=== PATIENT | female | born 1985 | race Two or more races ===

== ENCOUNTER 2025-01-21 16:15 | Observation (INO) | payer MEDICAID ==
--- NOTE | 2025-01-21 23:59 | DVHDS2 ---
Physician Discharge Progress N Final Diagnosis: ama,36wks Operations or Procedures: Operations or Procedures nst reviwed reactive,sono Condition on Discharge: Good Disposition: Home Discharge Instructions: Diet: Regular Activity: No Restrictions, As Tolerated Medications: na Follow Up Care: Specialist: 1w Discharge Statement: "Patient was advised to return to the ER or call 911 if any headaches, dizziness, shortness of breath, chest pain, abdominal pain, bleeding, fevers, or worsening of medical condition. Patient was counseled about treatment plan, medications, possible side effects, patientverbalized understanding. All questions were answered to the best of my ability. This discharge took greater then 30 minutes in planning, reviewing documentat ion, counseling the patient, and discussing with other team members." Visit Coding OBGYN Date of Service: Jan 21, 2025 Billing Provider: LIONEL RODGERS DO ADJUNCT PSYCHOLOGY PROFESSOR Common Visit Codes: [id number] OBS CARE (HIGH) ADJUNCT PSYCHOLOGY PROFESSOR Procedure Codes: 88651-13- NON-STRESS TEST LIONEL RODGERS DO Jan 21, 2025 23:59
== END 2025-01-21 17:30 | disposition home or self-care (01) ==
LOC: UNDOADMOB 16:15 → EDBD 16:15 → LDRP 16:15 → UNDODISOB 17:30
PROVIDERS: ADMIT Obstetrics & Gynecology; ATTEND Obstetrics & Gynecology
DX: O09.523 Supervision of elderly multigravida, third trimester (principal); Z3A.36 36 weeks gestation of pregnancy; Z79.899 Other long term (current) drug therapy; Z98.890 Other specified postprocedural states
CPT/HCPCS: 59025; 81002; 94760; G0378

== ENCOUNTER 2025-01-30 16:10 | Observation (INO) | payer MEDICAID ==
[~2025-01-30] VITALS: Ht 160 cm; Wt 89.4 kg
[2025-01-30] MEDS ORDERED: PREN-96 PO (17:06)
--- NOTE | 2025-01-30 17:12 | DVH ---
BIOPHYSICAL PROFILE HISTORY: AMA TECHNIQUE: Multiple transabdominal real-time grayscale sonographic images through the gravid uterus of the fetus with duplex Doppler color flow and M-mode spectral analysis FINDINGS: BIOPHYSICAL PROFILE: breathing score: 2/2 movement score: 2/2 tone score: 2/2 Quantitative MAXX score: 2/2 (MAXX: 9 Cm.) Total score: 8/8 The cervix closed Single live fetus in cephalic presentation. heart rate 129 beats per minute. Anterior placenta without previa or abruption IMPRESSION: 1. Biophysical profile score: 8/8
--- NOTE | 2025-01-30 18:08 | DVHDS2 ---
Physician Discharge Progress N Final Diagnosis: testing for AMA Operations or Procedures: Operations or Procedures 39yo IUP@37.5wks VSS NST reactive FKC/Labor precautions reviewed Other Interventions Other Interventions [address] [address] Ph: [phone] DIAGNOSTIC IMAGING Diagnostic Imaging Report : [id number] Signed PATIENT: RIDDHI WHITEACCT: [id number] UNIT: [id number] : 1985 LOC: [facility] RO[facility] / BED: TRIAGE1 / A AGE / SEX: 39 / F ADM STATUS: ADM IN SERVICE 1623 ORDERING PHYSICIAN: RADHA HARTLEY CNM PROCEDURE(s): BPP - BIOPHYSICAL PROFILE REASON: AMA ORDER NUMBER(s): [id number], ACCESSION NUMBER(s): [id number] BIOPHYSICAL PROFILE HISTORY: AMA TECHNIQUE: Multiple transabdominal real-time grayscale sonographic images through the gravid uterus of the fetus with duplex Doppler color flow and M-mode spectral analysis FINDINGS: BIOPHYSICAL PROFILE: breathing score: 2/2 movement score: 2/2 tone score: 2/2 Quantitative MAXX score: 2/2 (MAXX: 9 Cm.) Total score: 8/8 The cervix closed Single live fetus in cephalic presentation. heart rate 129 beats per minute. Anterior placenta without previa or abruption IMPRESSION: 1. Biophysical profile score: 8/8 ATED BY: TIFFANY MARTI MD DICTATED DATE/TIME: 01/30/251709 SIGNED BY: TIFFANY MARTI MD SIGNED DATE/TIME: 01/30/251709 CC: Condition on Discharge: Stable Disposition: Home Discharge Instructions: Diet: Regular Activity: No Restrictions, As Tolerated Medications: see med list Follow Up Care: Specialist: f/u in 1 wk Discharge Statement: "Patient was advised to return to the ER or call 911 if any headaches, dizziness, shortness of breath, chest pain, abdominal pain, bleeding, fevers, or worsening of medical condition. Patient was counseled about treatment plan, medications, possible side effects, patientverbalized understanding. All questions were answered to the best of my ability. This discharge took greater then 30 minutes in planning, reviewing documentation, counseling the patient, and discussing with other team members." Visit Coding OBGYN Date of Service: Jan 30, 2025 Billing Provider: RADHA HARTLEY CNM ELECTROCARDIOGRAM TECHNICIAN Common Visit Codes: [id number] OBS CARE (HIGH) ELECTROCARDIOGRAM TECHNICIAN Procedure Codes: 62468-83- NON-STRESS TEST RADHA HARTLEY CNM Jan 30, 2025 18:08
== END 2025-01-30 17:57 | disposition home or self-care (01) ==
LOC: LDRP 16:10 → UNDOADMOB 16:10 → LDRP 16:24 → UNDODISOB 17:57
PROVIDERS: ADMIT Obstetrics & Gynecology; ATTEND Obstetrics & Gynecology
DX: O09.523 Supervision of elderly multigravida, third trimester (principal); Z3A.37 37 weeks gestation of pregnancy; Z79.899 Other long term (current) drug therapy
CPT/HCPCS: 59025; 76819; 81002; 94760; G0378

== ENCOUNTER 2025-02-06 15:14 | Observation (INO) | payer MEDICAID ==
[~2025-02-06 15:14] MED LIST: PREN-96 PO
--- NOTE | 2025-02-06 16:07 | DVH ---
BIOPHYSICAL PROFILE HISTORY: ama Comparison Study: US BIOPHYSICAL PROFILE on DOS: 01/30/25 TECHNIQUE: Multiple real-time grayscale sonographic images through the gravid uterus of the fetus wi th duplex Doppler color flow and M-mode spectral analysis FINDINGS: BIOPHYSICAL PROFILE: breathing score: 2 movement score: tone score: Quantitative MAXX score: 2 (MAXX: 8.5 Cm.) Total score: 8 Single live fetus in cephalic presentation. heart rate 150 beats per minute. Anterior placenta without previa or abruption Biophysical profile score 8/8 corresponding to an ABIGAIL of 02/15/25 IMPRESSION: 1. Biophysical profile score: 8/8
--- NOTE | 2025-02-06 19:31 | DVHDS2 ---
Physician Discharge Progress N Final Diagnosis: testing for AMA Operations or Procedures: Operations or Procedures 39yo IUP@38.5wks VSS NST reactive FKC/labor precautions reviewed Other Interventions Other Interventions [address] [address] Ph: [phone] DIAGNOSTIC IMAGING Diagnostic Imaging Report : [id number] Signed PATIENT: RIDDHI WHITEACCT: [id number] UNIT: [id number] : 1985 LOC: [facility] RO[facility] / BED: TRIAGE2 / A AGE / SEX: 39 / F ADM STATUS: ADM IN SERVICE 1520 ORDERING PHYSICIAN: RADHA HARTLEY CNM PROCEDURE(s): BPP - BIOPHYSICAL PROFILE REASON: ama ORDER NUMBER(s): [id number], ACCESSION NUMBER(s): [id number] BIOPHYSICAL PROFILE HISTORY: ama Comparison Study: US BIOPHYSICAL PROFILE on DOS: 01/30/25 TECHNIQUE: Multiple real-time grayscale sonographic images through the gravid uterus of the fetus with duplex Doppler color flow and M-mode spectral analysis FINDINGS: BIOPHYSICAL PROFILE: breathing score: 2 movement score: tone score: Quantitative MAXX score: 2 (MAXX: 8.5 Cm.) Total score: 8 Single live fetus in cephalic presentation. heart rate 150 beats per minute. Anterior placenta without previa or abruption Biophysical profile score 8/8 corresponding to an ABIGAIL of 02/15/25 IMPRESSION: 1. Biophysical profile score: 8/8 ATED BY: TIFFANY YUEN MD DICTATED DATE/TIME: 02/06/25 1604 SIGNED BY: TIFFANY YUEN MD SIGNED DATE/TIME: 02/06/25 1604 CC: Condition on Discharge: Stable Disposition: Home Discharge Instructions: Diet: Regular Activity: No Restrictions, As Tolerated Medications: see med list Follow Up Care: Specialist: f/u in 1 wk Discharge Statement: "Patient was advised to return to the ER or call 911 if any headaches, dizziness, shortness of breath, chest pain, abdominal pain, bleeding, fevers, or worsening of medical condition. Patient was counseled about treatment plan, medications, possible side effects, patientverbalized understanding. All questions were answered to the best of my ability. This discharge took greater then 30 minutes in planning, reviewing documentation, counseling the patient, and discussing with other team members." Visit Coding OBGYN Date of Service: Feb 06, 2025 Billing Provider: RADHA HARTLEY CNM BARBER OR BEAUTY SHOP MANAGER Common Visit Codes: [id number] OBS CARE (HIGH) BARBER OR BEAUTY SHOP MANAGER Procedure Codes: 88541-49- NON-STRESS TEST RADHA HARTLEY CNM Feb 06, 2025 19:31
== END 2025-02-06 16:38 | disposition home or self-care (01) ==
LOC: LDRP 15:14 → UNDOADMOB 15:14 → LDRP 15:21 → UNDODISOB 16:38
PROVIDERS: ADMIT Obstetrics & Gynecology; ATTEND Obstetrics & Gynecology
DX: O09.523 Supervision of elderly multigravida, third trimester (principal); Z3A.38 38 weeks gestation of pregnancy; Z79.899 Other long term (current) drug therapy
CPT/HCPCS: 59025; 76819; 81002; 94760; G0378

== ENCOUNTER 2025-02-11 16:18 | Inpatient (IN) | payer MEDICAID ==
[~2025-02-11] VITALS: Ht 160 cm; Wt 86.6 kg
[2025-02-11] MEDS ORDERED: BUTORPHANOL TARTRATE 2 MG/1 ML VIAL IV PRN ×2 (16:45)
[2025-02-11] MEDS ORDERED: LIDOCAINE 2%HCL (LOCAL ANESTH.) INJ 20ML MDV IJ PRN (16:45)
[2025-02-11 17:11] LABS: Basophils # (auto) 0.1 10 ^3/uL (0-0.2); Basophils % (auto) 0.6 % (0.0-2.0); Eosinophils # (auto) 0.1 10 ^3/uL (0-0.8); Eosinophils % (auto) 0.7 % (0.0-7.0); Hematocrit 39.2 % (36.0-46.0); Hemoglobin 13.8 g/dL (12.2-16.2); Lymphocytes # (auto) 1.9 10 ^3/uL (0.4-5.4); Lymphocytes % (auto) 20.6 % (10.0-50.0); Mean Corpuscular Hemoglobin 34.7 pg (28.0-32.0); Mean Corpuscular Hgb Conc. 35.1 g/dL (32.0-36.0); Mean Corpuscular Volume 98.7 fL (80.0-100.0); Monocytes # (auto) 0.7 10 ^3/uL (0-1.3); Monocytes % (auto) 7.7 % (0.0-12.0); Neutrophils # (auto) 6.6 10 ^3/uL (1.6-8.6); Neutrophils % (auto) 70.4 % (37.0-80.0); Nucleated Red Blood Cells % 0.1 %; Platelet Count (auto) 277 10^3/uL (140-450); Red Blood Cells 3.97 10^6/uL (4.0-5.20); Red Cell Distribution Width 13.1 % (11.8-14.3); White Blood Cell 9.4 10^3/uL (4.4-10.8)
[2025-02-11 17:28] LABS: Alanine Aminotransferase 10 U/L (7-40); Albumin 4.1 g/dL (3.2-4.8); Anion Gap 10 (5-15); Aspartate Aminotransferase 15 U/L (<34); BUN/Creatinine Ratio 30.8 (10.0-20.0); Blood Urea Nitrogen 16 mg/dL (9-23); Calcium 9.6 mg/dL (8.7-10.4); Glucose 76 mg/dL (74-106); Potassium 4.4 mmol/L (3.5-5.1); Sodium 138 mmol/L (136-145); Total Protein 6.7 g/dL (5.7-8.2)
[2025-02-11 17:29] LABS: Bilirubin, Total 0.4 mg/dL (0.2-1.0); Urine Bacteria FEW /hpf (None Seen); Urine Blood Negative /uL (Negative); Urine Clarity Clear (Clear); Urine Color Yellow (Yellow); Urine Mucus FEW (None Seen); Urine Protein, UAD Negative (Negative); Urine Squamous Epithelial Cell FEW /hpf (<5); Urine Urobilinogen Normal (Negative); Urine WBC 2 /HPF (0-5)
[2025-02-11 17:32] LABS: Alkaline Phosphatase 117 U/L (46-116); Carbon Dioxide 19 mmol/L (20-31); Chloride 109 mmol/L (98-107)
[2025-02-11 17:39] LABS: INR 0.91 (0.9-1.15); Partial Thromboplastin Time 25.9 SEC (24.5-34.5); Prothrombin Time 9.7 sec (9.3-11.8)
[2025-02-11 17:43] LABS: Amphetamine Screen, Urine Neg (NEGATIVE); Barbiturate Scree,Urine Neg (NEGATIVE); Benzodiazephine Screen, Urine Neg (NEGATIVE); Cannabinoid Screen, Urine Neg (NEGATIVE); Cocaine Screen, Urine Neg (NEGATIVE); Opiate Scree,Urine Neg (NEGATIVE); Phencyclidine Screen, Urine Neg (NEGATIVE)
[2025-02-11] MEDS: miSOPROStol 50 MCG per PRE-CUT 1/2 TAB PO PRN (19:03)
[2025-02-11] MEDS: WITCH HAZEL-GLYCERIN PAD TOP PRN (22:58)
[2025-02-11] MEDS: DERMOPLAST 60ML BOTTLE TOP PRN (22:59)
[2025-02-11] MEDS: PHISODERM TOP SOLN 240ML BTL TOP PRN (22:59)
[2025-02-12] MEDS: LACTATED RINGER'S 1,000 ML IV SCH (03:02)
--- NOTE | 2025-02-12 05:57 | DVHHP2 ---
OB CC & HPI Date Date of Admission: Feb 12, 2025 Patient Identification: : 1 Para: 0 EDC: Feb 14, 2025 EGA: 39 + wks Chief Complaints: Reason for admission: induction of labor (low [place]) Indication for induction: other (Oligo) Other reason for admission: O[place] Admission Nurse Assessment Rev: No Past Medical History Cardiac: No pertinent Hx Pulmonary: No pertinent Hx Central Nervous System: No pertinent Hx GI: No pertinent Hx Hemotology/Oncology: No pertinent Hx Hepatobiliary: No pertinent Hx Psychiatric: No pertinent Hx Musculoskeletal: No pertinent Hx Rheumotologic: No pertinent Hx Infectious Disease: No peritnent Hx ENT: No pertinent Hx Renal/: No pertinent Hx Endocrine: No pertinent Hx Dermatology: No pertinent Hx Past Surgical History: No pertinent Hx OB History OB History Ultrasounds: No ultrasounds Obstetrical Complications: Other (Oligo) Medical Complications: None Allergies: Uncoded Allergies: peanut, food dyes (Allergy, Severe, 01/30/25) Home Meds Reported Medications Vit W/ Ferrous Fumara ( One Daily) Daily Tab, 1 TAB PO DAILY, #90 TAB 3 Refills 01/30/25 Current Medications Current Medications Medications (Trade) Dose Ordered Sig/Baljit Route PRN Reason Start Time Stop Time Status Last Admin Lactated Ringer's 1,000 ml @ 125 mls/hr Q8H IV 02/11/25 16:45 02/12/25 03:02 Witch [place] (Tucks) 1 pad PRN PRN TOP PERINEAL AREA DISCOMFORT 02/11/25 16:45 02/11/25 22:58 Sodium Lauryl Sulfate (Phisoderm) 240 ml PRN PRN TOP PERINEAL AREA DISCOMFORT 02/11/25 16:45 02/11/25 22:59 Benzocaine (Dermoplast) 1 applic PRN PRN TOP PERINEAL AREA DISCOMFORT 02/11/25 16:45 02/11/25 22:59 Butorphanol Tartrate (Stadol Injection) 1 mg Q4HPRN PRN IV MODERATE PAIN (4-6 PAIN SCALE) 02/11/25 16:45 Butorphanol Tartrate (Stadol Injection) 2 mg Q4HPRN PRN IV SEVERE PAIN (7-10 PAIN SCALE) 02/11/25 16:45 Misoprostol (Cytotec) 50 mcg Q4HPRN PRN PO CERVICAL RIPENING 02/11/25 16:45 02/12/25 03:01 Lidocaine HCl (Xylocaine) 20 ml ONCE PRN IJ PERINEAL AREA DISCOMFORT 02/11/25 16:45 Family & Social History Family/Social History Blood Type: O+ Rubella: immune RPR/VDRL: Negative GBS Status: Unknown HBsAG: Negative Review of Systems Constitutional: No symptom reported Ears, Nose, & Throat: No symptom reported Eyes: No symptom reported Pulmonary/Respiratory: No symptom reported Cardiovascular: No symptom reported Gastrointestinal: No symptom reported Genitourinary: No symptom reported Musculoskeletal: No symptom reported Skin: No symptom reported Psychiatric: No symptom reported Endocrine: No symptom reported Hemotologic/Lymphatic: No symptom reported OB Admission Exam Physical Exam HEENT: TMs Normal, Fontanelles Normal, Nasal Mucosa Normal, Eyes non-injected, Oropharynx Normal, PERRLA, Moist Membranes, EOMI Heart: Rhythm Normal Lungs: Clear Abdomen: Gravid Extremities: Normal Reflexes: Normal Cervical Dilatation: Fingertip Effacement: 0% Station: Ballotable Membranes: Intact Heart Rate: 130's Accelerations: Accelerations Present Decelerations: No Decelerations Short Term Variability: Present Communications Representative Variability: Average (6-25) Contractions on Admission: None OB Plan Plan Admitting Diagnosis: induction [place]ligo Plan: Expectant Management Other Plan: citotec induction ... Dr Mendiola sent and will take over Tuesday AM .... Repeat BPP this AM Visit Coding OBGYN Date of Service: Feb 12, 2025 SFDC ARCHITECT Common Visit Codes: [id number] INP/OBS CARE (MOD), 00180-XQS/OBS SAME DATE (LOW), 54544-TXB/OBS SAME DATE (HIGH) SFDC ARCHITECT Procedure Codes: 87483-29- NON-STRESS TEST ERNESTINA AL DO Feb 12, 2025 05:57
--- NOTE | 2025-02-12 07:01 | DVH ---
CLINICAL HISTORY: LOW MAXX COMPARISON: US BIOPHYSICAL PROFILE on DOS: 02/06/25, US BIOPHYSICAL PROFILE on DOS: 01/30/25 TECHNIQUE: biophysical profile was performed. Transabdominal sonographic images of the fetus we re obtained. FINDINGS: The fetus is in cephalic position. heart rate measures 129 BPM. Amniotic fluid index measures 6.9 cm. The placenta is anterior in position without evidence of previa or abruption. Incide ntal note is made of a 1.7 cm hypoechoic structure along the anterior aspect of the uterus, likely fi broid. BPP profile is an overall score of 8/8, with 2/2 points for breathing, with at least one episode of breathing over a 30 second duration during a 30 minute observation, 2/2 points for m ovements, with 3 or more discrete body or limb movements, 2/2 points for tone, with one or more episodes of extremity extension with return to flexion, or opening and closing of hand, and 2/ 2 points for amniotic fluid, with at least 1 pocket of amniotic fluid that measures 2 cm in 2 perpend icular planes. IMPRESSION: 1. BPP score of 8/8. 2. Additional findings as described above.
--- NOTE | 2025-02-12 09:11 | DVHPN2 ---
CNM Labor Progress Note Date and Time Seen Date Seen: Feb 12, 2025 Time Seen: 09:00 Subjective Patient reports: No new complaints Subjective Comment Pt laying comfortably in bed Objective Vital Signs VSS, see chart Monitoring Method Monitoring Method: External Heart Rate Heart Rate Baseline: 125 Heart Rate Variability: Moderate Presence of FHR Accelerations: Yes Presence of FHR Decelerations: No Are all 5 Components of the FH: Yes Contractions Contractions Frequency: Other (Q1-4 min) Duration of Contraction: 80 Contractions Intensity: Moderate Contractions Resting Tone: Relaxed Membranes Membranes: Intact Vaginal Exam Vag Exam Deferred: No Vaginal Exam Dilation: 0 Vaginal Exam Effacement: 0 Vaginal Exam Station: -3 (0) Vaginal Exam Presentation: VTX Vaginal Exam Show: None Medications Medications - Pitocin: No Medications - Pain Medications: PRN Medication - Epidural: No Medication - Other s/p Cytotec PO x3 dose Cervidil placed at 0900 Lab Results Lab Results Current Medications Medications (Trade) Dose Ordered Sig/Baljit Start Time Stop Time Status Last Admin Dose Admin Lactated Ringer's 1,000 ml @ 125 mls/hr Q8H 02/11/25 16:45 02/12/25 03:02 125 MLS/HR Witch [place] (Tucks) 1 pad PRN PRN 02/11/25 16:45 02/11/25 22:58 1 PAD Sodium Lauryl Sulfate (Phisoderm) 240 ml PRN PRN 02/11/25 16:45 02/11/25 22:59 240 ML Benzocaine (Dermoplast) 1 applic PRN PRN 02/11/25 16:45 02/11/25 22:59 1 APPLIC Butorphanol Tartrate (Stadol Injection) 1 mg Q4HPRN PRN 02/11/25 16:45 Butorphanol Tartrate (Stadol Injection) 2 mg Q4HPRN PRN 02/11/25 16:45 Misoprostol (Cytotec) 50 mcg Q4HPRN PRN 02/11/25 16:45 02/12/25 03:01 50 MCG Lidocaine HCl (Xylocaine) 20 ml ONCE PRN 02/11/25 16:45 Dinoprostone (Cervidil Suppository) 1 supp ONCE ONCE 02/12/25 07:00 02/12/25 07:05 DC 02/12/25 09:27 1 SUPP Laboratory Tests Test 02/11/25 16:00 Range/Units White Blood Count 9.4 4.4-10.8 10^3/uL Red Blood Count 3.97 L 4.0-5.20 10^6/uL Hemoglobin 13.8 12.2-16.2 g/dL Hematocrit 39.2 36.0-46.0 % Mean Corpuscular Volume 98.7 80.0-100.0 fL Mean Corpuscular Hemoglobin 34.7 H 28.0-32.0 pg Mean Corpuscular Hemoglobin Concent 35.1 32.0-36.0 g/dL Red Cell Distribution Width 13.1 11.8-14.3 % Platelet Count 277 140-450 10^3/uL Mean Platelet Volume 7.8 6.9-10.8 fL Neutrophils (%) (Auto) 70.4 37.0-80.0 % Lymphocytes (%) (Auto) 20.6 10.0-50.0 % Monocytes (%) (Auto) 7.7 0.0-12.0 % Eosinophils (%) (Auto) 0.7 0.0-7.0 % Basophils (%) (Auto) 0.6 0.0-2.0 % Neutrophils # (Auto) 6.6 1.6-8.6 10 ^3/uL Lymphocytes # (Auto) 1.9 0.4-5.4 10 ^3/uL Monocytes # (Auto) 0.7 0-1.3 10 ^3/uL Eosinophils # (Auto) 0.1 0-0.8 10 ^3/uL Basophils # (Auto) 0.1 0-0.2 10 ^3/uL Nucleated Red Blood Cells 0.1 % Prothrombin Time 9.7 9.3-11.8 sec Prothrombin Time INR 0.91 0.9-1.15 Activated Partial Thromboplast Time 25.9 24.5-34.5 SEC Urine Color Yellow Yellow Urine Clarity Clear Clear Urine pH 6.0 5.0-9.0 Urine Specific [place] 1.030 1.001-1.035 Urine Protein Negative Negative Urine Ketones Negative Negative Urine Blood Negative Negative /uL Urine Nitrite Negative Negative Urine Bilirubin Negative Negative Urine Urobilinogen Normal Negative mg/dL Urine Leukocyte Esterase Negative Negative /uL Urine RBC 3 0 - 4 /hpf Urine Microscopic WBC 2 0-5 /HPF Urine Squamous Epithelial Cells Few <5 /hpf Urine Bacteria Few H None Seen /hpf Urine Mucus Few None Seen Urine Glucose Normal Normal mg/dL Sodium Level 138 136-145 mmol/L Potassium Level 4.4 3.5-5.1 mmol/L Chloride Level 109 H 98-107 mmol/L Carbon Dioxide Level 19 L 20-31 mmol/L Anion Gap 10 5-15 Blood Urea Nitrogen 16 9-23 mg/dL Creatinine 0.52 L 0.550-1.02 mg/dL Glomerular Filtration Rate Calc 122 >90 mL/min BUN/Creatinine Ratio 30.8 H 10.0-20.0 Serum Glucose 76 74-106 mg/dL Calcium Level 9.6 8.7-10.4 mg/dL Total Bilirubin 0.4 0.2-1.0 mg/dL Aspartate Amino Transferase (AST) 15 <34 U/L Alanine Aminotransferase (ALT) 10 7-40 U/L Alkaline Phosphatase 117 H 46-116 U/L Total Protein 6.7 5.7-8.2 g/dL Albumin 4.1 3.2-4.8 g/dL Urine Opiates Screen Neg NEGATIVE Urine Fentanyl Screen Neg NEGATIVE Urine Barbiturates Screen Neg NEGATIVE Urine Phencyclidine Screen Neg NEGATIVE Urine Amphetamines Screen Neg NEGATIVE Urine Benzodiazepines Screen Neg NEGATIVE Urine Cocaine Screen Neg NEGATIVE Urine Cannabinoids Screen Neg NEGATIVE Treponema pallidum Antibody Non-reactive Negative Hepatitis C Antibody Negative Negative Assessment Assessment 39yo IUP@39.4wks Induction of Labor for Oligohydramnios Category I EFM Intact Membranes GBS negative Plan Plan Discussed risks, benefits, alternatives of intravaginal Cervidil. Pt consents to IOL with Cervidil. monitoring per order Pain mgmt PRN Frequent position changes in and out of bed encouraged Limit SVE unless necessary Intrauterine resuscitation PRN Anticipate CNM will consult with Dr. Mendiola PRN Plan discussed with: Patient Visit Coding OBGYN Date of Service: Feb 12, 2025 Billing Provider: RADHA HARTLEY CNM CARDIOPULMONARY SUPERVISOR Common Visit Codes: [id number] INP/OBS CARE(HIGH) ASUNCION MCCRAY STUDENTMDW Feb 12, 2025 09:11
[2025-02-12] MEDS: DINOPROSTONE 10MG VAG SUPP PV ONE (09:27)
--- NOTE | 2025-02-12 16:25 | DVHPN2 ---
CNM Labor Progress Note Date and Time Seen Date Seen: Feb 12, 2025 Time Seen: 16:00 Subjective Subjective Comment Pt reports her contractions are "more regular and stronger". Objective Vital Signs VSS, see chart Monitoring Method Monitoring Method: External Heart Rate Heart Rate Baseline: 135 Heart Rate Variability: Moderate Presence of FHR Accelerations: Yes Presence of FHR Decelerations: No Are all 5 Components of the FH: Yes Contractions Contractions Frequency: Other (Q 1-3 min) Duration of Contraction: 80 Contractions Intensity: Moderate Contractions Resting Tone: Relaxed Membranes Membranes: Intact Vaginal Exam Vag Exam Deferred: Yes Medications Medications - Pitocin: No Medications - Pain Medications: PRN Medication - Epidural: No Medication - Other s/p Cytotec PO x3 doses Cervidil in place Lab Results Lab Results Current Medications Medications (Trade) Dose Ordered Sig/Baljit Start Time Stop Time Status Last Admin Dose Admin Lactated Ringer's 1,000 ml @ 125 mls/hr Q8H 02/11/25 16:45 02/12/25 03:02 125 MLS/HR Robert Galeano (Tucks) 1 pad PRN PRN 02/11/25 16:45 02/11/25 22:58 1 PAD Sodium Lauryl Sulfate (Phisoderm) 240 ml PRN PRN 02/11/25 16:45 02/11/25 22:59 240 ML Benzocaine (Dermoplast) 1 applic PRN PRN 02/11/25 16:45 02/11/25 22:59 1 APPLIC Butorphanol Tartrate (Stadol Injection) 1 mg Q4HPRN PRN 02/11/25 16:45 Butorphanol Tartrate (Stadol Injection) 2 mg Q4HPRN PRN 02/11/25 16:45 Misoprostol (Cytotec) 50 mcg Q4HPRN PRN 02/11/25 16:45 02/12/25 03:01 50 MCG Lidocaine HCl (Xylocaine) 20 ml ONCE PRN 02/11/25 16:45 Dinoprostone (Cervidil Suppository) 1 supp ONCE ONCE 02/12/25 07:00 02/12/25 07:05 DC 02/12/25 09:27 1 SUPP Laboratory Tests Test 02/11/25 16:00 Range/Units White Blood Count 9.4 4.4-10.8 10^3/uL Red Blood Count 3.97 L 4.0-5.20 10^6/uL Hemoglobin 13.8 12.2-16.2 g/dL Hematocrit 39.2 36.0-46.0 % Mean Corpuscular Volume 98.7 80.0-100.0 fL Mean Corpuscular Hemoglobin 34.7 H 28.0-32.0 pg Mean Corpuscular Hemoglobin Concent 35.1 32.0-36.0 g/dL Red Cell Distribution Width 13.1 11.8-14.3 % Platelet Count 277 140-450 10^3/uL Mean Platelet Volume 7.8 6.9-10.8 fL Neutrophils (%) (Auto) 70.4 37.0-80.0 % Lymphocytes (%) (Auto) 20.6 10.0-50.0 % Monocytes (%) (Auto) 7.7 0.0-12.0 % Eosinophils (%) (Auto) 0.7 0.0-7.0 % Basophils (%) (Auto) 0.6 0.0-2.0 % Neutrophils # (Auto) 6.6 1.6-8.6 10 ^3/uL Lymphocytes # (Auto) 1.9 0.4-5.4 10 ^3/uL Monocytes # (Auto) 0.7 0-1.3 10 ^3/uL Eosinophils # (Auto) 0.1 0-0.8 10 ^3/uL Basophils # (Auto) 0.1 0-0.2 10 ^3/uL Nucleated Red Blood Cells 0.1 % Prothrombin Time 9.7 9.3-11.8 sec Prothrombin Time INR 0.91 0.9-1.15 Activated Partial Thromboplast Time 25.9 24.5-34.5 SEC Urine Color Yellow Yellow Urine Clarity Clear Clear Urine pH 6.0 5.0-9.0 Urine Specific [place] 1.030 1.001-1.035 Urine Protein Negative Negative Urine Ketones Negative Negative Urine Blood Negative Negative /uL Urine Nitrite Negative Negative Urine Bilirubin Negative Negative Urine Urobilinogen Normal Negative mg/dL Urine Leukocyte Esterase Negative Negative /uL Urine RBC 3 0 - 4 /hpf Urine Microscopic WBC 2 0-5 /HPF Urine Squamous Epithelial Cells Few <5 /hpf Urine Bacteria Few H None Seen /hpf Urine Mucus Few None Seen Urine Glucose Normal Normal mg/dL Sodium Level 138 136-145 mmol/L Potassium Level 4.4 3.5-5.1 mmol/L Chloride Level 109 H 98-107 mmol/L Carbon Dioxide Level 19 L 20-31 mmol/L Anion Gap 10 5-15 Blood Urea Nitrogen 16 9-23 mg/dL Creatinine 0.52 L 0.550-1.02 mg/dL Glomerular Filtration Rate Calc 122 >90 mL/min BUN/Creatinine Ratio 30.8 H 10.0-20.0 Serum Glucose 76 74-106 mg/dL Calcium Level 9.6 8.7-10.4 mg/dL Total Bilirubin 0.4 0.2-1.0 mg/dL Aspartate Amino Transferase (AST) 15 <34 U/L Alanine Aminotransferase (ALT) 10 7-40 U/L Alkaline Phosphatase 117 H 46-116 U/L Total Protein 6.7 5.7-8.2 g/dL Albumin 4.1 3.2-4.8 g/dL Urine Opiates Screen Neg NEGATIVE Urine Fentanyl Screen Neg NEGATIVE Urine Barbiturates Screen Neg NEGATIVE Urine Phencyclidine Screen Neg NEGATIVE Urine Amphetamines Screen Neg NEGATIVE Urine Benzodiazepines Screen Neg NEGATIVE Urine Cocaine Screen Neg NEGATIVE Urine Cannabinoids Screen Neg NEGATIVE Treponema pallidum Antibody Non-reactive Negative Hepatitis C Antibody Negative Negative Assessment Assessment 39yo IUP@39.4wks Induction of Labor for Oligohydramnios Category I EFM Intact Membranes GBS negative Plan Plan Plan to remove cervidil at 2100 unless tachysystole or ROM before then monitoring per order Pain mgmt PRN Frequent position changes in and out of bed encouraged Limit SVE unless necessary Intrauterine resuscitation PRN Anticipate CNM will consult with Dr. Mendiola PRN Plan discussed with: Patient, Other (friend) Visit Coding OBGYN Date of Service: Feb 12, 2025 Billing Provider: RADHA HARTLEY CNM HR ASSOCIATE Common Visit Codes: [id number] INP/OBS CARE(HIGH) ASUNCION MCCRAY STUDENTMDW Feb 12, 2025 16:25
[2025-02-12] MEDS: SIMETHICONE 80 MG CHEWABLE TABLET PO PRN (20:30)
[2025-02-12] MEDS ORDERED: NALBUPHINE HCL 10 MG/1ml INJECTION IM PRN (21:15)
[2025-02-12] MEDS: NALBUPHINE HCL 10 MG/1ml INJECTION IV PRN (21:28)
[2025-02-12] MEDS ORDERED: ONDANSETRON HCL 4 MG/2 ML VIAL IV PRN (22:00)
[2025-02-12] MEDS: LACTATED RINGER'S 1,000 ML IV ONE (22:15)
[2025-02-12] MEDS: LACT. RINGERS/OXYTOCIN 20UNITS 500 ML IV ONE (22:15)
[2025-02-12] MEDS: NALOXONE HCL 0.4 MG/ML VIAL IV ONE (22:15)
[2025-02-12] MEDS: LIDOCAINE HCL 2 %PF INJ 10ML AMP IJ ONE (22:15)
[2025-02-12] MEDS: ePHEDrine SULFATE 50 MG/ML AMP IV ONE (22:15)
[2025-02-12] MEDS ORDERED: TERBUTALINE SULFATE 1 MG/ML 1ML VIAL SC PRN ×2 (22:15→23:15)
--- NOTE | 2025-02-12 22:20 | DVHPN2 ---
CNM Labor Progress Note Date and Time Seen Date Seen: Feb 12, 2025 Time Seen: 21:35 Subjective Patient reports: Feels worse Subjective Comment Pt states contractions are painful and considering getting an epidural Objective Vital Signs VSS, see chart Monitoring Method Monitoring Method: External Heart Rate Heart Rate Baseline: 135 Heart Rate Variability: Moderate Presence of FHR Accelerations: Yes Presence of FHR Decelerations: No Are all 5 Components of the FH: Yes Contractions Contractions Frequency: Other (Q 1-5 min) Duration of Contraction: 90 Contractions Intensity: Moderate Contractions Resting Tone: Relaxed Membranes Membranes: Intact Vaginal Exam Vag Exam Deferred: No (1.5/60%/-2, Rollins balloon with 60mL sterile fluid placed @ 2144) Vaginal Exam Presentation: VTX Vaginal Exam Show: None Medications Medications - Pitocin: No Medications - Pain Medications: PRN Medication - Epidural: No Medication - Other s/p Cytotec PO x3 doses, Cervidil removed at 2116 Lab Results Lab Results Vital Signs Date Time Temp Pulse Resp B/P (MAP) Pulse Ox O2 Delivery O2 Flow Rate FiO2 02/12/25 21:28 82 16 123/68 Current Medications Medications (Trade) Dose Ordered Sig/Baljit Start Time Stop Time Status Last Admin Dose Admin Lactated Ringer's 1,000 ml @ 125 mls/hr Q8H 02/11/25 16:45 02/12/25 03:02 125 MLS/HR Witch [place] (Tucks) 1 pad PRN PRN 02/11/25 16:45 02/11/25 22:58 1 PAD Sodium Lauryl Sulfate (Phisoderm) 240 ml PRN PRN 02/11/25 16:45 02/11/25 22:59 240 ML Benzocaine (Dermoplast) 1 applic PRN PRN 02/11/25 16:45 02/11/25 22:59 1 APPLIC Butorphanol Tartrate (Stadol Injection) 1 mg Q4HPRN PRN 02/11/25 16:45 02/12/25 21:52 DC Butorphanol Tartrate (Stadol Injection) 2 mg Q4HPRN PRN 02/11/25 16:45 02/12/25 21:52 DC Misoprostol (Cytotec) 50 mcg Q4HPRN PRN 02/11/25 16:45 02/12/25 21:52 DC 02/12/25 03:01 50 MCG Lidocaine HCl (Xylocaine) 20 ml ONCE PRN 02/11/25 16:45 Dinoprostone (Cervidil Suppository) 1 supp ONCE ONCE 02/12/25 07:00 02/12/25 07:05 DC 02/12/25 09:27 1 SUPP Dimethicone (Mylicon Tab) 40 mg QIDPRN PRN 02/12/25 20:15 02/12/25 20:30 40 MG Nalbuphine HCl (Nubain) 10 mg Q4HP PRN 02/12/25 21:15 02/12/25 21:28 10 MG Ondansetron HCl (Zofran) 4 mg Q4HPRN PRN 02/12/25 22:00 Naloxone HCl (Narcan) 0.2 mg PRN ONCE 02/12/25 22:15 02/12/25 22:16 UNV Ephedrine Sulfate (ePHEDrine SULFATE) 10 mg PRN ONCE 02/12/25 22:15 02/12/25 22:16 UNV Fentanyl Citrate 100 mcg ONCE ONCE 02/12/25 22:15 02/12/25 22:16 UNV Lidocaine HCl (Xylocaine-Pf 2% Injection) 10 ml ONCE ONCE 02/12/25 22:15 02/12/25 22:16 UNV Lactated Ringer's 1,000 ml @ 1,000 mls/hr Q1H ONCE 02/12/25 22:15 02/12/25 23:14 UNV Laboratory Tests Test 02/11/25 16:00 Range/Units White Blood Count 9.4 4.4-10.8 10^3/uL Red Blood Count 3.97 L 4.0-5.20 10^6/uL Hemoglobin 13.8 12.2-16.2 g/dL Hematocrit 39.2 36.0-46.0 % Mean Corpuscular Volume 98.7 80.0-100.0 fL Mean Corpuscular Hemoglobin 34.7 H 28.0-32.0 pg Mean Corpuscular Hemoglobin Concent 35.1 32.0-36.0 g/dL Red Cell Distribution Width 13.1 11.8-14.3 % Platelet Count 277 140-450 10^3/uL Mean Platelet Volume 7.8 6.9-10.8 fL Neutrophils (%) (Auto) 70.4 37.0-80.0 % Lymphocytes (%) (Auto) 20.6 10.0-50.0 % Monocytes (%) (Auto) 7.7 0.0-12.0 % Eosinophils (%) (Auto) 0.7 0.0-7.0 % Basophils (%) (Auto) 0.6 0.0-2.0 % Neutrophils # (Auto) 6.6 1.6-8.6 10 ^3/uL Lymphocytes # (Auto) 1.9 0.4-5.4 10 ^3/uL Monocytes # (Auto) 0.7 0-1.3 10 ^3/uL Eosinophils # (Auto) 0.1 0-0.8 10 ^3/uL Basophils # (Auto) 0.1 0-0.2 10 ^3/uL Nucleated Red Blood Cells 0.1 % Prothrombin Time 9.7 9.3-11.8 sec Prothrombin Time INR 0.91 0.9-1.15 Activated Partial Thromboplast Time 25.9 24.5-34.5 SEC Urine Color Yellow Yellow Urine Clarity Clear Clear Urine pH 6.0 5.0-9.0 Urine Specific [place] 1.030 1.001-1.035 Urine Protein Negative Negative Urine Ketones Negative Negative Urine Blood Negative Negative /uL Urine Nitrite Negative Negative Urine Bilirubin Negative Negative Urine Urobilinogen Normal Negative mg/dL Urine Leukocyte Esterase Negative Negative /uL Urine RBC 3 0 - 4 /hpf Urine Microscopic WBC 2 0-5 /HPF Urine Squamous Epithelial Cells Few <5 /hpf Urine Bacteria Few H None Seen /hpf Urine Mucus Few None Seen Urine Glucose Normal Normal mg/dL Sodium Level 138 136-145 mmol/L Potassium Level 4.4 3.5-5.1 mmol/L Chloride Level 109 H 98-107 mmol/L Carbon Dioxide Level 19 L 20-31 mmol/L Anion Gap 10 5-15 Blood Urea Nitrogen 16 9-23 mg/dL Creatinine 0.52 L 0.550-1.02 mg/dL Glomerular Filtration Rate Calc 122 >90 mL/min BUN/Creatinine Ratio 30.8 H 10.0-20.0 Serum Glucose 76 74-106 mg/dL Calcium Level 9.6 8.7-10.4 mg/dL Total Bilirubin 0.4 0.2-1.0 mg/dL Aspartate Amino Transferase (AST) 15 <34 U/L Alanine Aminotransferase (ALT) 10 7-40 U/L Alkaline Phosphatase 117 H 46-116 U/L Total Protein 6.7 5.7-8.2 g/dL Albumin 4.1 3.2-4.8 g/dL Urine Opiates Screen Neg NEGATIVE Urine Fentanyl Screen Neg NEGATIVE Urine Barbiturates Screen Neg NEGATIVE Urine Phencyclidine Screen Neg NEGATIVE Urine Amphetamines Screen Neg NEGATIVE Urine Benzodiazepines Screen Neg NEGATIVE Urine Cocaine Screen Neg NEGATIVE Urine Cannabinoids Screen Neg NEGATIVE Treponema pallidum Antibody Non-reactive Negative Hepatitis C Antibody Negative Negative Assessment Assessment 39yo IUP@39.4wks Induction of Labor for Oligohydramnios Category I EFM Intact Membranes GBS negative Plan Plan RN to check Rollins balloon Q 1hr Discussed benefits of IV Oxytocin with pt. Pt agrees with POC. Start IV Oxytocin after epidural is placed monitoring per order Pain mgmt PRN Frequent position changes in bed encouraged Limit SVE unless necessary Intrauterine resuscitation PRN Anticipate CNM will consult with Dr. Mendiola PRN Plan discussed with: Patient Visit Coding OBGYN Date of Service: Feb 12, 2025 Billing Provider: RADHA HARTLEY CNM BARBER SHOP OPERATOR Common Visit Codes: [id number] INP/OBS CARE(HIGH) BARBER SHOP OPERATOR Procedure Codes: 75449-13- NON-STRESS TEST ASUNCION MCCRAY STUDENTMDW Feb 12, 2025 22:20
[2025-02-12] MEDS ORDERED: LACT. RINGERS/OXYTOCIN 20UNITS 500 ML IV ONE (22:45)
[2025-02-12] MEDS: ROPIVACAINE HCL 100 ML ONE (23:38)
--- NOTE | 2025-02-12 23:38 | EPIDURAL ---
Anesthesia Procedural Note - Epidural Informed consent obtained?: Yes Sterile prept drape: Yes Spinal level of insertion: L3-L4 Test dose of lidocaine & Epine: Negative Infusion started: Yes Start time: 22:43 End time: 23:38 Procedure description Procedure description: 39 y/o admitted for induction of labor, 39+ weeks AOG + oligohydramnios. Ms. Pavel Roblero desires PCEA at 1 - 1.5cm dilation. Denies any medical pro blems and vital signs stable. Ms. Pavel Roblero positioned sitting for the epudural placement with full monitors on. Chart reviewed, patient interviewed, informed consent obtained, all questions answered and she wishes to proceed with PCEA. Epidurla space ID'd using loss of resistance technique. Epidural catheter secured in place after test dose x 1 negative. She "feels better" with contractions after epidural in place. Ms. Pavel Roblero had to have a stat primary C/section. Non-reassuring heart tones. Epidural that's already in place was activated for the C/section. She delivered a single live baby girl with APGARs 8 & 9 at 1 & 5 minutes respectively. Epidural catheter pulled with tip intact. No redness, swelling, or oozing around epirudal areal Ms Pavel Roblero is back to baseline, able to garcia with , able to ambulate. Total epidural time: :43 - 10:51 Total face to face time: :43 - 23:38 REGGIE BOLDEN MD Feb 12, 2025 23:38
[2025-02-12] MEDS: fentaNYL CITRATE 100 MCG/2 ML VL IV ONE (23:40)
[2025-02-13] VITALS (17 sets, daily range): BP systolic 104–136; BP diastolic 54–88; PULSE 70–84; RESP 16–17; TEMP 97.8; O2SAT 93–99
[2025-02-13] MEDS: LACT. RINGERS/OXYTOCIN 20UNITS 1,000 ML IV SCH (00:29)
--- NOTE | 2025-02-13 04:49 | DVHPN2 ---
CNM Labor Progress Note Date and Time Seen Date Seen: Feb 13, 2025 Time Seen: 04:30 Subjective Patient reports: No new complaints Subjective Comment Pt resting comfortably in bed Objective Vital Signs VSS, see chart Monitoring Method Monitoring Method: External Heart Rate Heart Rate Baseline: 140 Heart Rate Variability: Moderate Presence of FHR Accelerations: Yes Presence of FHR Decelerations: No Are all 5 Components of the FH: Yes Contractions Contractions Frequency: Other (Q 1.5-3 min) Duration of Contraction: 100 Contractions Intensity: Moderate Contractions Resting Tone: Relaxed Membranes Membranes: Intact Vaginal Exam Vag Exam Deferred: No (4/60%/-3) Vaginal Exam Presentation: VTX Vaginal Exam Show: Small Medications Medications - Pitocin: Yes Medication - Epidural: Yes Medication - Other s/p Cytotec PO x3 doses, Cervidil x1, Rollins balloon out at 0427 Lab Results Lab Results Vital Signs Date Time Temp Pulse Resp B/P (MAP) Pulse Ox O2 Delivery O2 Flow Rate FiO2 02/12/25 23:40 118/76 02/12/25 21:28 82 16 Current Medications Medications (Trade) Dose Ordered Sig/Baljit Start Time Stop Time Status Last Admin Dose Admin Lactated Ringer's 1,000 ml @ 125 mls/hr Q8H 02/11/25 16:45 02/12/25 03:02 125 MLS/HR Witch [place] (Tucks) 1 pad PRN PRN 02/11/25 16:45 02/11/25 22:58 1 PAD Sodium Lauryl Sulfate (Phisoderm) 240 ml PRN PRN 02/11/25 16:45 02/11/25 22:59 240 ML Benzocaine (Dermoplast) 1 applic PRN PRN 02/11/25 16:45 02/11/25 22:59 1 APPLIC Butorphanol Tartrate (Stadol Injection) 1 mg Q4HPRN PRN 02/11/25 16:45 02/12/25 21:52 DC Butorphanol Tartrate (Stadol Injection) 2 mg Q4HPRN PRN 02/11/25 16:45 02/12/25 21:52 DC Misoprostol (Cytotec) 50 mcg Q4HPRN PRN 02/11/25 16:45 02/12/25 21:52 DC 02/12/25 03:01 50 MCG Lidocaine HCl (Xylocaine) 20 ml ONCE PRN 02/11/25 16:45 Dinoprostone (Cervidil Suppository) 1 supp ONCE ONCE 02/12/25 07:00 02/12/25 07:05 DC 02/12/25 09:27 1 SUPP Dimethicone (Mylicon Tab) 40 mg QIDPRN PRN 02/12/25 20:15 02/12/25 20:30 40 MG Nalbuphine HCl (Nubain) 10 mg Q4HP PRN 02/12/25 21:15 02/12/25 21:28 10 MG Ondansetron HCl (Zofran) 4 mg Q4HPRN PRN 02/12/25 22:00 Naloxone HCl (Narcan) 0.2 mg PRN ONCE 02/12/25 22:15 02/12/25 22:16 DC Ephedrine Sulfate (ePHEDrine SULFATE) 10 mg PRN ONCE 02/12/25 22:15 02/12/25 22:16 DC Fentanyl Citrate 100 mcg ONCE ONCE 02/12/25 22:15 02/12/25 22:16 DC 02/12/25 23:40 100 MCG Lidocaine HCl (Xylocaine-Pf 2% Injection) 10 ml ONCE ONCE 02/12/25 22:15 02/12/25 22:16 DC Lactated Ringer's 1,000 ml @ 1,000 mls/hr Q1H ONCE 02/12/25 22:15 02/12/25 23:14 DC Oxytocin 1,000 ml @ 6 ml/hr Q24H 02/12/25 22:15 02/13/25 00:29 6 ML/HR Terbutaline Sulfate (Brethine Inj) 0.25 mg ONCE PRN 02/12/25 22:15 Oxytocin 500 ml @ 999 mls/hr Q31M ONCE 02/12/25 22:15 02/12/25 22:45 DC Oxytocin 500 ml @ 125 mls/hr Q4H ONCE 02/12/25 22:45 02/13/25 02:44 DC Terbutaline Sulfate (Brethine Inj) 0.25 mg ONCE PRN 02/12/25 23:15 Laboratory Tests Test 02/11/25 16:00 Range/Units White Blood Count 9.4 4.4-10.8 10^3/uL Red Blood Count 3.97 L 4.0-5.20 10^6/uL Hemoglobin 13.8 12.2-16.2 g/dL Hematocrit 39.2 36.0-46.0 % Mean Corpuscular Volume 98.7 80.0-100.0 fL Mean Corpuscular Hemoglobin 34.7 H 28.0-32.0 pg Mean Corpuscular Hemoglobin Concent 35.1 32.0-36.0 g/dL Red Cell Distribution Width 13.1 11.8-14.3 % Platelet Count 277 140-450 10^3/uL Mean Platelet Volume 7.8 6.9-10.8 fL Neutrophils (%) (Auto) 70.4 37.0-80.0 % Lymphocytes (%) (Auto) 20.6 10.0-50.0 % Monocytes (%) (Auto) 7.7 0.0-12.0 % Eosinophils (%) (Auto) 0.7 0.0-7.0 % Basophils (%) (Auto) 0.6 0.0-2.0 % Neutrophils # (Auto) 6.6 1.6-8.6 10 ^3/uL Lymphocytes # (Auto) 1.9 0.4-5.4 10 ^3/uL Monocytes # (Auto) 0.7 0-1.3 10 ^3/uL Eosinophils # (Auto) 0.1 0-0.8 10 ^3/uL Basophils # (Auto) 0.1 0-0.2 10 ^3/uL Nucleated Red Blood Cells 0.1 % Prothrombin Time 9.7 9.3-11.8 sec Prothrombin Time INR 0.91 0.9-1.15 Activated Partial Thromboplast Time 25.9 24.5-34.5 SEC Urine Color Yellow Yellow Urine Clarity Clear Clear Urine pH 6.0 5.0-9.0 Urine Specific [place] 1.030 1.001-1.035 Urine Protein Negative Negative Urine Ketones Negative Negative Urine Blood Negative Negative /uL Urine Nitrite Negative Negative Urine Bilirubin Negative Negative Urine Urobilinogen Normal Negative mg/dL Urine Leukocyte Esterase Negative Negative /uL Urine RBC 3 0 - 4 /hpf Urine Microscopic WBC 2 0-5 /HPF Urine Squamous Epithelial Cells Few <5 /hpf Urine Bacteria Few H None Seen /hpf Urine Mucus Few None Seen Urine Glucose Normal Normal mg/dL Sodium Level 138 136-145 mmol/L Potassium Level 4.4 3.5-5.1 mmol/L Chloride Level 109 H 98-107 mmol/L Carbon Dioxide Level 19 L 20-31 mmol/L Anion Gap 10 5-15 Blood Urea Nitrogen 16 9-23 mg/dL Creatinine 0.52 L 0.550-1.02 mg/dL Glomerular Filtration Rate Calc 122 >90 mL/min BUN/Creatinine Ratio 30.8 H 10.0-20.0 Serum Glucose 76 74-106 mg/dL Calcium Level 9.6 8.7-10.4 mg/dL Total Bilirubin 0.4 0.2-1.0 mg/dL Aspartate Amino Transferase (AST) 15 <34 U/L Alanine Aminotransferase (ALT) 10 7-40 U/L Alkaline Phosphatase 117 H 46-116 U/L Total Protein 6.7 5.7-8.2 g/dL Albumin 4.1 3.2-4.8 g/dL Urine Opiates Screen Neg NEGATIVE Urine Fentanyl Screen Neg NEGATIVE Urine Barbiturates Screen Neg NEGATIVE Urine Phencyclidine Screen Neg NEGATIVE Urine Amphetamines Screen Neg NEGATIVE Urine Benzodiazepines Screen Neg NEGATIVE Urine Cocaine Screen Neg NEGATIVE Urine Cannabinoids Screen Neg NEGATIVE Treponema pallidum Antibody Non-reactive Negative Hepatitis C Antibody Negative Negative Assessment Assessment 39yo IUP@39.4wks Induction of Labor for Oligohydramnios Category I EFM Intact Membranes GBS negative Plan Plan IV Oxytocin per protocol monitoring per order Pain mgmt PRN Frequent position changes in bed encouraged Limit SVE unless necessary Intrauterine resuscitation PRN Anticipate CNM will consult with Dr. Mendiola PRN Plan discussed with: Patient Visit Coding OBGYN Date of Service: Feb 13, 2025 Billing Provider: RADHA HARTLEY CNM LICENSED PHARMACIST Common Visit Codes: [id number] INP/OBS CARE(HIGH) LICENSED PHARMACIST Procedure Codes: 45255-14- NON-STRESS TEST ASUNCION MCCRAY STUDENTMDW Feb 13, 2025 04:49
--- NOTE | 2025-02-13 07:23 | DVHPN2 ---
Chief Complaints Patient reports: No new complaints Nursing reports: No new complaints Objective Vitals Vital Signs Date Time Temp Pulse Resp B/P (MAP) Pulse Ox O2 Delivery O2 Flow Rate FiO2 02/12/25 23:40 118/76 02/12/25 22:28 87 16 Medications Current Medications Medications (Trade) Dose Ordered Sig/Baljit Route PRN Reason Start Time Stop Time Status Last Admin Dimethicone (Mylicon Tab) 40 mg QIDPRN PRN PO FOR STOMACH DISTRESS 02/12/25 20:15 02/12/25 20:30 Nalbuphine HCl (Nubain) 10 mg Q4HP PRN IM MODERATE PAIN (4-6 PAIN SCALE) 02/12/25 21:15 UNV Nalbuphine HCl (Nubain) 10 mg Q4HP PRN IV MODERATE PAIN (4-6 PAIN SCALE) 02/12/25 21:15 02/12/25 21:28 Ondansetron HCl (Zofran) 4 mg Q4HPRN PRN IV NAUSEA / VOMITING 02/12/25 22:00 Oxytocin 1,000 ml @ 6 ml/hr Q24H IV 02/12/25 22:15 02/13/25 00:29 Terbutaline Sulfate (Brethine Inj) 0.25 mg ONCE PRN SC Uterine tachysystole 02/12/25 22:15 Terbutaline Sulfate (Brethine Inj) 0.25 mg ONCE PRN SC Uterine tachysystole 02/12/25 23:15 Others ve-4cm/80/-2 Studies Laboratory Tests 02/11/25 16:00 Test 02/11/25 16:00 Range/Units Serum Glucose 76 74-106 mg/dL Ass/Plan Assessment iol Plan cont with giovanna biggs is out Visit Coding OBGYN Date of Service: Feb 13, 2025 Billing Provider: LIONEL RODGERS DO DATA PROCESSING MANAGER Common Visit Codes: [id number] INP/OBS CARE(HIGH) DATA PROCESSING MANAGER Procedure Codes: 55248-08- NON-STRESS TEST LIONEL RODGERS DO Feb 13, 2025 07:23
[2025-02-13] MEDS: ROPIVACAINE HCL 100 ML ONE (08:58)
[2025-02-13] MEDS: ceFAZolin 2 GM/D5W50ml 50 ML IV ONE (08:59)
--- NOTE | 2025-02-13 09:26 | DVHHP ---
ADMIT DATE: 02/13/2025 CHIEF COMPLAINT: Intolerance to labor, repetitive late deceleration. HISTORY OF PRESENT ILLNESS: The patient is a 39-year-old 1, para 0, with due date 02/14, admitted for oligohydramnios. The patient received Cytotec, followed by Cervidil, followed by Rollins balloon. The patient reached to 4 cm, -2, but started having late deceleration and she showed intolerance to Pitocin. PAST MEDICAL HISTORY: None. PAST SURGICAL HISTORY: None. SOCIAL HISTORY: None. FAMILY HISTORY: None. OBSTETRIC AND GYNECOLOGIC HISTORY: Primigravid. REVIEW OF SYSTEMS: Consistent with HPI. PHYSICAL EXAMINATION: VITAL SIGNS: Stable, afebrile. HEENT: Within normal limits. CARDIOVASCULAR: Regular rate and rhythm. LUNGS: Clear to auscultation. BREASTS: Symmetrical. No masses. ABDOMEN: Soft, nontender, gravid. PELVIC: 4 cm, -2, 70%. EXTREMITIES: No clubbing, cyanosis, or edema. IMPRESSION: * Intrauterine at 39+ weeks with nonreassuring heart tracing. * Fetus at risk, intolerance to Pitocin. * AMA. * Oligohydramnios. PLAN: Primary low transverse section. Informed consent obtained. Risks and complications of surgery including infection, bleeding, hematoma formation, injury to bowel, bladder, surrounding organ, possibility of DVT, pulmonary embolism and risk of anesthesia discussed with the patient. Options reviewed. All questions answered. The patient fully understands. She wishes to proceed with planned procedure. DO ANGELICA Guo/PATRICE TID: [id number] RECEIPT: [id number]
[2025-02-13] MEDS ORDERED: DexAMETHasone SOD PHOS 10MG/1ML VIAL INJ ONE (10:30)
[2025-02-13] MEDS ORDERED: oxyTOCIN 10 UNIT/ML 10ML VIAL ONE (10:30)
[2025-02-13] MEDS ORDERED: ONDANSETRON HCL 4 MG/2 ML VIAL ONE (10:30)
[2025-02-13] MEDS ORDERED: fentaNYL CITRATE 100 MCG/2 ML VL ONE (10:31)
[2025-02-13] MEDS ORDERED: MORPHINE SULF PF 5 MG/10 ML VIAL ONE (10:31)
[2025-02-13] MEDS: LIDOCAINE HCL 2 %PF INJ 10ML AMP IJ ONE (10:45)
[2025-02-13] MEDS ORDERED: EPINEPHrine HCL 1 MG/1 ML AMP ONE (10:47)
[2025-02-13] MEDS ORDERED: SODIUM BICARB 8.4% 50Meq/50ml SYR Vial IV ONE (10:47)
[2025-02-13] MEDS: CARBOPROST TROMETHAMINE 250 MCG/1ML VIAL IM ONE (11:14)
[2025-02-13] MEDS ORDERED: ONDANSETRON HCL 4 MG/2 ML VIAL IV PRN (11:30)
[2025-02-13] MEDS ORDERED: ceFAZolin 1GM/50ML 50 ML IV SCH (11:30)
[2025-02-13] MEDS: GUM (CHEWING) 1 GUM CHEW CHEW ONE (11:30)
[2025-02-13] MEDS: LACT. RINGERS/OXYTOCIN 20UNITS 1,000 ML IV ONE (11:30)
[2025-02-13] MEDS ORDERED: HYDROmorphone HCL 2 MG/ML VL/or syr IV PRN (12:15)
[2025-02-13] MEDS ORDERED: diphenhdrAMINE HCL 50 MG/1 ML VL IV PRN (12:15)
[2025-02-13] MEDS ORDERED: NALOXONE HCL 0.4 MG/ML VIAL IV PRN (12:15)
[2025-02-13] MEDS ORDERED: NALBUPHINE HCL 10 MG/1ml INJECTION IV ONE (12:15)
--- NOTE | 2025-02-13 13:23 | DVHOP2 ---
Operative Report DATE OF OPERATION: 02/13/25 PREOPERATIVE DIAGNOSES: Term induction of labor for oligo,non reassuring fht,fetus at risk,ama, POSTOPERATIVE DIAGNOSES: same,op SURGEON: Dimple Mendiola D.O./cici ANESTHESIOLOGIST: margi TYPE OF ANESTHESIA : spinal CONSENT: The patient was informed of the risks and benefits of the procedure. The patient was informed of the risks and benefits of the procedure. These include but are not limited to , complications of anesthesia, postoperative infection, incomplete relief of symptoms, recurrence of symptoms, damage to blood vessels, nerves and tendons, deep venous thrombosis, pulmonary embolism and possible need for repeat surgery in the future. FINDINGS: Baby [girl] with Apgars of [8] and [9]. Grossly normal appearing tubes and ovaries.op,oligo PROCEDURES: Primary low transverse section. PROCEDURE IN DETAIL: The patient was taken to the operating room. She already had an epidural in place. She was then placed in supine position with a leftward tilt. A Pfannenstiel skin incision was made 2 cm above the symphysis pubis. This incision was carried to the underlying layer of fascia. The fascia was nicked in the midline. The incision was extended laterally. The superior aspect of the fascial incision was grasped and elevated. The same procedure was done to the inferior aspect of the fascial incision. The rectus muscles were then in the midline. Peritoneum was identified and entered. Peritoneal incision was extended superiorly and inferiorly with good visualization of the bladder. Bladder blade was inserted. Vesicouterine peritoneum was identified and entered. Lower uterine segment was incised in a transverse fashion. The was delivered from vertex presentation. Infant was baby [girl] with Apgars [8] and [9]. Placenta was then removed manually. Uterus was exteriorized and cleared of all clots and debris. The incision was repaired using 0 Vicryl in a double-layered fashion. No bleeding was noted. Uterus was then returned to the abdomen. The gutters were cleared off all clots and debris. Peritoneum was closed using 0 Vicryl, fascia was closed using 0 Maxon, and skin was closed using jasper. The patient tolerated the procedure well. She was taken to the recovery room in stable condition. ESTIMATED BLOOD LOSS: Estimated blood loss was noted to be 800 mL. Visit Coding OBGYN Date of Service: Feb 13, 2025 Billing Provider: DIMPLE MENDIOLA DO RAIL CAR REPAIR CARMAN Common Visit Codes: [id number] OBS CARE (HIGH) RAIL CAR REPAIR CARMAN Procedure Codes: [id number] DELIVERY ONLY DIMPLE MENDIOLA DO Feb 13, 2025 13:23
--- NOTE | 2025-02-13 13:25 | POSTOP ---
Post-Operative Note Post-Operative Note Preop Diagnosis iup at 39wks,fetrus at risk,,iol for oligo Postop Diagnosis: same,op,oligo Operation performed pltcs Specimen baby girl,apgars 8-9,op,scant fld Anesthesia: Regional Anesthesiologist: margi Blood Loss(fluid mgmt) 800ml Surgeon Lionel Mendiola Member Certification Manager cici Implant na Complications & Mgmt none Date 02/13/25 Time 13:23 Visit Coding OBGYN Date of Service: Feb 13, 2025 Billing Provider: LIONEL MENDIOLA DO EQUIPMENT DETAILER Common Visit Codes: [id number] OBS CARE (HIGH) EQUIPMENT DETAILER Procedure Codes: [id number] DELIVERY ONLY LIONEL MENDIOLA DO Feb 13, 2025 13:25
[2025-02-13] MEDS: ONDANSETRON HCL 4 MG/2 ML VIAL IV PRN (15:37)
[2025-02-13] MEDS: METOCLOPRAMIDE HCL 5MG/ml INJ 2ml VIAL IV PRN (17:21)
[2025-02-13] MEDS: ceFAZolin 1GM/50ML 50 ML IV SCH (19:19)
[2025-02-13] MEDS: FAMOTIDINE (10MG/ML) 2ML VL IV SCH (21:47)
[2025-02-13 21:51] LABS: Basophils # (auto) 0 10 ^3/uL (0-0.2); Basophils % (auto) 0.2 % (0.0-2.0); Eosinophils # (auto) 0 10 ^3/uL (0-0.8); Hematocrit 38.9 % (36.0-46.0); Hemoglobin 12.8 g/dL (12.2-16.2); Lymphocytes # (auto) 1.2 10 ^3/uL (0.4-5.4); Mean Corpuscular Hemoglobin 32.8 pg (28.0-32.0); Mean Corpuscular Volume 99.4 fL (80.0-100.0); Monocytes # (auto) 0.6 10 ^3/uL (0-1.3); Monocytes % (auto) 2.9 % (0.0-12.0); Neutrophils # (auto) 17.5 10 ^3/uL (1.6-8.6); Neutrophils % (auto) 90.9 % (37.0-80.0); Nucleated Red Blood Cells % 0.1 %; Platelet Count (auto) 269 10^3/uL (140-450); Red Blood Cells 3.91 10^6/uL (4.0-5.20); Red Cell Distribution Width 12.9 % (11.8-14.3); White Blood Cell 19.3 10^3/uL (4.4-10.8)
[2025-02-13] MEDS ORDERED: HYDR-4798 PO (22:01)
[2025-02-13] MEDS ORDERED: IBUP-1456 PO (22:01)
[2025-02-13] MEDS ORDERED: DOCU-94 PO (22:01)
[2025-02-14] VITALS (14 sets, daily range): BP systolic 102–127; BP diastolic 62–84; PULSE 68–98; RESP 16–18; TEMP 97.7–98.6; O2SAT 94–98
--- NOTE | 2025-02-14 00:10 | DVHPN2 ---
Progress Note Date Seen: Feb 14, 2025 Subjective Pt dangled in bed but got dizzy. Rollins catheter in place. Advancing diet as tolerated. . vital signs Vital Sign Date Time Temp Pulse Resp B/P (MAP) Pulse Ox O2 Delivery O2 Flow Rate FiO2 02/13/25 23:11 97.8 75 16 118/70 (86) 99 97.8 02/13/25 18:45 Room Air 02/13/25 13:00 0.0 02/13/25 11:58 95 Total Intake and Output 02/13/25 02/13/25 02/14/25 15:00 23:00 07:00 Output Total 890 ml Balance -890 ml medications Current Medications Medications Dose Ordered Sig/Baljit Route Start Time Stop Time Status Last Admin Dose Admin Lactated Ringer's 1,000 ml @ 125 mls/hr Q8H IV 02/11/25 16:45 02/13/25 07:42 125 MLS/HR Robert Galeano 1 pad PRN PRN TOP 02/11/25 16:45 02/11/25 22:58 1 PAD Sodium Lauryl Sulfate 240 ml PRN PRN TOP 02/11/25 16:45 02/11/25 22:59 240 ML Benzocaine 1 applic PRN PRN TOP 02/11/25 16:45 02/11/25 22:59 1 APPLIC Lidocaine HCl 20 ml ONCE PRN IJ 02/11/25 16:45 Dimethicone 40 mg QIDPRN PRN PO 02/12/25 20:15 02/12/25 20:30 40 MG Nalbuphine HCl 10 mg Q4HP PRN IM 02/12/25 21:15 UNV Nalbuphine HCl 10 mg Q4HP PRN IV 02/12/25 21:15 02/12/25 21:28 10 MG Oxytocin 1,000 ml @ 6 ml/hr Q24H IV 02/12/25 22:15 02/13/25 00:29 6 ML/HR Terbutaline Sulfate 0.25 mg ONCE PRN SC 02/12/25 22:15 Terbutaline Sulfate 0.25 mg ONCE PRN SC 02/12/25 23:15 Ondansetron HCl 4 mg Q4HP PRN IV 02/13/25 11:30 UNV Diphenhydramine HCl 25 mg Q4HP PRN IV 02/13/25 12:15 Ondansetron HCl 4 mg Q4HP PRN IV 02/13/25 12:15 Hold 02/13/25 15:37 4 MG Cefazolin Sodium 50 ml @ 100 mls/hr Q8H IV 02/13/25 19:00 02/14/25 11:29 02/13/25 19:19 100 MLS/HR Acetaminophen 1,000 mg Q8HPRN PRN IV 02/13/25 13:15 02/14/25 06:01 Metoclopramide HCl 10 mg Q6HPRN PRN IV 02/13/25 16:45 02/13/25 17:21 10 MG Famotidine 20 mg Q12HR IV 02/13/25 22:00 02/13/25 21:47 20 MG laboratory and microbiology Laboratory Tests 02/13/25 21:18 02/11/25 16:00 Test 02/11/25 16:00 Range/Units Serum Glucose 76 74-106 mg/dL Objective O: VSS Chest: heart sounds normal and lung sounds clear bilaterally Abd: soft, non-tender, fundus at U/firm/midline, active bowel sounds, no rebound or guarding Incision: sylke dressing open to air, clean/dry/intact Ext: Non-tender, No edema, 2+ BLE DTRs Lochia: minimal See lab results Problems(with codes): (1) S/P primary low transverse Assessment/Plan A/P: 39yo now PPD#1 s/p primary -Continue with routine post-op PP care Plan discussed with: Patient Visit Coding OBGYN Date of Service: Feb 14, 2025 Billing Provider: RADHA HARTLEY CNM [employer] CRM DEVELOPER Common Visit Codes: [id number] INP/OBS CARE(HIGH) RADHA HARTLEY CNM Feb 14, 2025 00:10
[2025-02-14] MEDS: ACETAMINOPHEN IV 1000 MG/100ML (10MG/ML) IV PRN (02:32)
[2025-02-14 09:35] LABS: Basophils # (auto) 0.2 10 ^3/uL (0-0.2); Eosinophils # (auto) 0.1 10 ^3/uL (0-0.8); Eosinophils % (auto) 0.3 % (0.0-7.0); Hematocrit 35.7 % (36.0-46.0); Hemoglobin 12.1 g/dL (12.2-16.2); Lymphocytes # (auto) 2.2 10 ^3/uL (0.4-5.4); Lymphocytes % (auto) 13.7 % (10.0-50.0); Mean Corpuscular Hemoglobin 33.9 pg (28.0-32.0); Mean Corpuscular Hgb Conc. 33.8 g/dL (32.0-36.0); Mean Corpuscular Volume 100.3 fL (80.0-100.0); Monocytes # (auto) 1.1 10 ^3/uL (0-1.3); Monocytes % (auto) 6.6 % (0.0-12.0); Neutrophils # (auto) 12.8 10 ^3/uL (1.6-8.6); Neutrophils % (auto) 78.4 % (37.0-80.0); Platelet Count (auto) 200 10^3/uL (140-450); Red Blood Cells 3.56 10^6/uL (4.0-5.20); White Blood Cell 16.3 10^3/uL (4.4-10.8)
[2025-02-14] MEDS: ACETAMINOPHEN IV 1000 MG/100ML (10MG/ML) IV ONE (09:58)
[2025-02-14 10:59] LABS: Macrocytosis Slight; Platelet Estimate Adequate
[2025-02-14 11:00] LABS: Large Platelets FEW
[2025-02-14] MEDS ORDERED: BISACODYL 10 MG RECT SUPP PR PRN (11:15)
[2025-02-14] MEDS ORDERED: HYDROcodone-ACET 5/325MG TAB PO PRN (11:15)
[2025-02-14] MEDS: SIMETHICONE 80 MG CHEWABLE TABLET PO SCH (12:00)
[2025-02-14] MEDS: IBUPROFEN 800 MG TAB PO PRN (14:07)
[2025-02-14] MEDS: DOCUSATE SOD 100 MG CAP PO SCH (23:17)
[2025-02-15 03:00] VITALS: BP 115/70; PULSE 68; RESP 15; TEMP 98.2; O2SAT 96
[2025-02-15 07:04] VITALS: BP 119/68; PULSE 71; RESP 15; TEMP 98.1; O2SAT 96
--- NOTE | 2025-02-15 07:20 | DVHPN2 ---
Chief Complaints Patient reports: No new complaints Nursing reports: No new complaints Objective Vitals Vital Signs Date Time Temp Pulse Resp B/P (MAP) Pulse Ox O2 Delivery O2 Flow Rate FiO2 02/15/25 03:00 98.2 68 15 115/70 (85) 96 98.2 02/14/25 19:00 Room Air 02/13/25 13:00 0.0 02/13/25 11:58 95 Medications Current Medications Medications (Trade) Dose Ordered Sig/Baljit Route PRN Reason Start Time Stop Time Status Last Admin Acetaminophen/ Hydrocodone Bitart ([place] 5/325MG Tab) 1 tab Q4HPRN PRN PO FOR PAIN 1-6 02/14/25 11:15 Acetaminophen/ Hydrocodone Bitart ([place] 5/325MG Tab) 2 tab Q4HPRN PRN PO FOR PAIN 7-10 02/14/25 11:15 Bisacodyl (Dulcolax Suppository) 10 mg DAILYP PRN DE FOR CONSTIPATION 02/14/25 11:15 Dimethicone (Mylicon Tab) 80 mg QID PO 02/14/25 12:00 02/15/25 05:32 Docusate Sodium (Colace Capsule) 100 mg Q12HR PO 02/14/25 22:00 02/14/25 23:17 Ibuprofen (Motrin Tablet) 800 mg Q8HP PRN PO BREAKTHROUGH PAIN 02/14/25 11:15 02/14/25 23:17 General: Normal Lungs: Normal Cardiovascular: Normal Abdominal: Soft Extremities: Normal Studies Laboratory Tests 02/14/25 09:02 02/11/25 16:00 Test 02/11/25 16:00 Range/Units Serum Glucose 76 74-106 mg/dL Ass/Plan Assessment s/p pcs Plan dc home fu 1wk Visit Coding OBGYN Date of Service: Feb 15, 2025 Billing Provider: LIONEL RODGERS DO GAS TESTER Common Visit Codes: 94557-[id number] INP/OBS CARE (HIGH), 08231-UVJ/OBS DISCH DAY >30MIN GAS TESTER Procedure Codes: 47355-M-IZOILCR DELIVERY ONLY LIONEL RODGERS DO Feb 15, 2025 07:20
--- NOTE | 2025-02-15 07:21 | DVHDS2 ---
Obstetrics Discharge Summary Obstetrics Discharge Summary Date of Admission: Feb 12, 2025 Date of Discharge: Feb 15, 2025 Reason For Admission: Induction of Labor Procedures: NST Intrapartum Procedures: (Low Cervical Transverse) Procedures: None Operative Complicat: None Discharge Diagnosis: Term -Delivered Discharge Information: Activity (Other), Diet (Routine), Medications (Name:), Instructions (Routine), Discharge to (Home), Discarge date (02-15) Visit Coding OBGYN Date of Service: Feb 15, 2025 Billing Provider: LIONEL RODGERS DO PROCESS SAFETY SPECIALIST Common Visit Codes: 60837-VERBAGG INP/OBS CARE (HIGH), 33417-AWU/OBS DISCH DAY >30MIN PROCESS SAFETY SPECIALIST Procedure Codes: 58913-A-VFJCRZG DELIVERY ONLY LIONEL RODGERS DO Feb 15, 2025 07:21
[2025-02-15] MEDS: TETANUS-DIPTH-ACEL PERTUSSIS 0.5ML SYR Tdap IM ONE (09:42)
[2025-02-15] MEDS: HYDROcodone-ACET 5/325MG TAB PO PRN (09:43)
== END 2025-02-15 10:54 | disposition home or self-care (01) | DRG 540 ==
LOC: LDRP 16:18
PROVIDERS: ADMIT Obstetrics & Gynecology; ATTEND Obstetrics & Gynecology
PROC: 3E0DXGC Introduction of Other Therapeutic Substance into Mouth and Pharynx, External Approach (ICD-10-PCS; 2025-02-13)
PROC: 3E0R3BZ Introduction of Anesthetic Agent into Spinal Canal, Percutaneous Approach (ICD-10-PCS; 2025-02-13)
PROC: 10D00Z1 Extraction of Products of Conception, Low, Open Approach (ICD-10-PCS; principal; 2025-02-13 10:51)
DX: O41.03X0 Oligohydramnios, third trimester, not applicable or unspecified (principal); R71.0 Precipitous drop in hematocrit; O76 Abnormality in fetal heart rate and rhythm complicating labor and delivery; Z37.0 Single live birth; Z3A.39 39 weeks gestation of pregnancy; Z91.010 Allergy to peanuts
CPT/HCPCS: 36415; 59025; 59200; 62282; 76819; 80053; 80307; 81001; 85025; 85610; 85730; 86780; 86803; 86850; 86900; 86901; 90715; 94762; 96360; 96361; 96366; 96374; 96375; A4344; G0378; J0131; J0171; J1100; J2405; J2590; J3490

== ENCOUNTER 2025-03-10 00:24 | Inpatient (IN) | payer MEDICAID ==
[~2025-03-10] VITALS: Ht 205.7 cm; Wt 81.5 kg
[2025-03-10] VITALS (7 sets, daily range): BP systolic 123–132; BP diastolic 79–88; PULSE 93–112; RESP 12–19; TEMP 97.9–102.5; O2SAT 93–99
[~2025-03-10 00:24] MED LIST changes: +DOCU-94 PO; +HYDR-4798 PO; +IBUP-1456 PO
--- NOTE | 2025-03-10 01:17 | ED.PDOC ---
GI ASSESSMENT HPI Comments 39 year old female with a prior Surgery done here at [facility] on the 13 of February presents to the ED for the c/c of Epigastric ABD pain that radiated to her RLQ. Pt states that her pain has been onset for the past 1x day with no alleviating factors at this time. Pt is noted to have tenderness to her RLQ upon palpitation. Pt notes of a prior Cholecystectomy. Pt denies any N/V/D or other associated symptoms at this time. Chief Complaint: Abdominal Pain Time Seen by MD: 01:12 Reviewed Notes: Nurses Notes, Medications, Allergies Allergies: Uncoded Allergies: peanut, food dyes (Allergy, Severe, 01/30/25) Home Meds Active Scripts Hydrocodone-Acetaminophen (Hydrocodone Bitartrate/AC 10-325 mg) 1 Tab Tab, 1 TAB PO Q6HPRN PRN for 5 Days, #20 TAB Prov:RADHA HARTLEY [facility] 02/13/25 Docusate Sodium (Colace) 100 Mg Cap, 1 CAP PO BID PRN, #60 CAP 2 Refills Prov:RADHA HARTLEY CNM 02/13/25 Ibuprofen (Ibuprofen) 800 Mg Tab, 1 TAB PO TID, #90 TAB Prov:RADHA HARTLEY [facility] 02/13/25 Reported Medications Vit W/ Ferrous Fumara ( One Daily) Daily Tab, 1 TAB PO DAILY, #90 TAB 3 Refills 01/30/25 Information Source: Patient Mode of Arrival: Ambulatory Timing: Days Duration: Since onset, Days Prehospital treatment: None Quality: Aching, Cramping, Sharp Vomitus: None Stool: Normal Severity: Moderate Recent: Recent Surgery Recent Hx of: Abdominal Operations Pain Location: Epigastric, RLQ Modifying Factors: Exertion, Position, Movement Associated sign and symptoms: Abdominal Pain Past Medical History PAST MEDICAL HISTORY: Denies Surgical History: TEACHER History: No Pertinent TEACHER History Family History Family History: Unknown Social History Smoker: Non-Smoker Alcohol: Denies ETOH Use Drugs: Denies Drug Use Lives In: Home Constitutional: denies: chills, diaphoresis, fatigue, fever, malaise, sweats, weakness, others EENTM: denies: blurred vision, double vision, ear bleeding, ear discharge, ear drainage, ear pain, ear ringing, eye pain, eye redness, hearing loss, mouth pain, mouth swelling, nasal discharge, nose bleeding, nose congestion, nose pain, photophobia, tearing, throat pain, throat swelling, voice changes, others Respiratory: denies: cough, hemoptysis, orthopnea, SOB at rest, shortness of breath, SOB with excertion, stridor, wheezing, others Cardiovascular: denies: chest pain, dizzy spells, diaphoresis, Dyspnea on exertion, edema, irregular heart beat, left arm pain, lightheadedness, palpitations, PND, syncope, others Gastrointestinal: reports: abdominal pain; denies: abdomen distended, blood streaked bowels, constipated, diarrhea, dysphagia, difficulty swallowing, hematemesis, melena, nausea, poor appetite, poor fluid intake, rectal bleeding, rectal pain, vomiting, others Genitourinary: denies: abnormal vagina bleeding, burning, dyspareunia, dysuria, flank pain, frequency, hematuria, incontinence, pain, , vagina discharge, urgency, others Neurological: denies: dizziness, fainting, headache, left sided numbness, left sided weakness, numbness, paresthesia, pre-existing deficit, right sided numbness, right sided weakness, seizure, speech problems, tingling, tremors, weakness, others Musculoskeletal: denies: back pain, gout, joint pain, joint swelling, muscle pa in, muscle stiffness, neck pain, others Integumetry: denies: bruises, change in color, change in hair/nails, dryness, laceration, lesions, lumps, rash, wounds, others Allergic/Immunocompromised: denies: Difficulty Healing, Frequent Infections, Hives, Itching, others Hematologic/Lymphatic: denies: anemia, blood clots, easy bleeding, easy bruising, swollen glands, others Endocrine: denies: excessive hunger, excessive sweating, excessive thirst, excessive urination, flushing, intolerance to cold, intolerance to heat, unexplained weight gain, unexplained weight loss, others Psychiatric: denies: anxiety, bipolar disorder, depression, hopeless, panic disorder, schizophrenia, sleepless, suicidal, others All Other Systems: Reviewed and Negative Physical Exam General Appearance: Moderate Distress, Normal HEENT: Normal ENT Inspection, Pharynx Normal, TMs Normal Neck: Full Range of Motion, Non-Tender, Normal, Normal Inspection Respiratory: Chest Non-Tender, Lungs Clear, No Accessory Muscle Use, No Respiratory Distress, Normal Breath Sounds Cardiovascular: No Edema, No JVD, No Murmur, No Gallop, Normal Peripheral Pulses, Regular Rate/Rhythm Breast Exam: Deferred Gastrointestinal: Epigastric, No Organomegaly, No Pulsatile Mass, Normal Bowel Sounds, RLQ, Soft, Tenderness, Other (TTP to RLQ and EPigastric areas, no gross abnormality) Genitalia: Deferred Pelvic: Deferred Rectal: Deferred Extremities: No calf tenderness, Normal capillary refill, Normal inspection, Normal range of motion, Non-tender, No pedal edema Musculoskeletal : Apperance: Normal Neurologic: Alert, No Motor Deficits, Normal Affect, Normal Mood, No Sensory Deficits Cerebellar Function: Normal Reflexes: Normal Skin: Dry, Normal Color, Warm Lymphatic: No Adenopathy Was a procedure done? Was a procedure done?: No GI differential Dx Differential Diagnosis: Appendicitis, Angina/[place], Bowel Obstruction, Cholangitis, Cholecystitis, Constipation, Diverticular disease, Dysmenorrhea, Ectopic , Gastritis/PUD, Gastroenteritis, GI hemorrhage, Hernia, Hepatitis, Inflammatory BD, Ischemic Bowel, Ovarian cyst/torsion, Pancreatitis, UTI, Urolithiasis, Dehydration, Diabetes/ DKA, Drug toxicity, Electrolyte Imbalance, Food Poisoning, , Bacterial, Parasitic, Viral, Hypovolemia, Impaction, Renal Failure, Ischemic Bowel, Mass, Anemia, Stress Ulcer, Kidney Stone X-Ray, Labs, Meds, VS Vital Signs Date Time Temp Pulse Resp B/P (MAP) Pulse Ox O2 Delivery O2 Flow Rate FiO2 03/10/25 02:46 98.9 95 16 131/79 (96) 99 98.9 03/10/25 02:46 95 16 99 Room Air* 0 21 03/10/25 02:45 95 16 131/79 03/10/25 01:13 98.2 106 18 156/76 (102) 98 98.2 Lab Test 03/10/25 01:44 03/10/25 01:19 Range/Units Urine Color Yellow Yellow Urine Clarity Clear Clear Urine pH 5.5 5.0-9.0 Urine Specific [place] 1.023 1.001-1.035 Urine Protein Trace H Negative Urine Ketones Negative Negative Urine Blood 1+ H Negative /uL Urine Nitrite Negative Negative Urine Bilirubin Negative Negative Urine Urobilinogen Normal Negative mg/dL Urine Leukocyte Esterase Trace Negative /uL Urine RBC 1 0 - 4 /hpf Urine Microscopic WBC 4 0-5 /HPF Urine Squamous Epithelial Cells None seen <5 /hpf Urine Bacteria None seen None Seen /hpf Urine Mucus Few None Seen Urine Glucose Normal Normal mg/dL Urine Test Negative Negative White Blood Count 18.6 H 4.4-10.8 10^3/uL Red Blood Count 4.59 4.0-5.20 10^6/uL Hemoglobin 15.3 12.2-16.2 g/dL Hematocrit 44.7 36.0-46.0 % Mean Corpuscular Volume 97.4 80.0-100.0 fL Mean Corpuscular Hemoglobin 33.3 H 28.0-32.0 pg Mean Corpuscular Hemoglobin Concent 34.2 32.0-36.0 g/dL Red Cell Distribution Width 12.5 11.8-14.3 % Platelet Count 344 140-450 10^3/uL Mean Platelet Volume 8.4 6.9-10.8 fL Neutrophils (%) (Auto) 86.3 H 37.0-80.0 % Lymphocytes (%) (Auto) 8.7 L 10.0-50.0 % Monocytes (%) (Auto) 4.7 0.0-12.0 % Eosinophils (%) (Auto) 0.1 0.0-7.0 % Basophils (%) (Auto) 0.2 0.0-2.0 % Neutrophils # (Auto) 16.1 H 1.6-8.6 10 ^3/uL Lymphocytes # (Auto) 1.6 0.4-5.4 10 ^3/uL Monocytes # (Auto) 0.9 0-1.3 10 ^3/uL Eosinophils # (Auto) 0 0-0.8 10 ^3/uL Basophils # (Auto) 0 0-0.2 10 ^3/uL Nucleated Red Blood Cells 0.0 % Sodium Level 139 136-145 mmol/L Potassium Level 3.8 3.5-5.1 mmol/L Chloride Level 101 98-107 mmol/L Carbon Dioxide Level 28 20-31 mmol/L Anion Gap 10 5-15 Blood Urea Nitrogen 13 9-23 mg/dL Creatinine 0.78 0.550-1.02 mg/dL Glomerular Filtration Rate Calc 100 >90 mL/min BUN/Creatinine Ratio 16.7 10.0-20.0 Serum Glucose 126 H 74-106 mg/dL Calcium Level 9.3 8.7-10.4 mg/dL Total Bilirubin 0.9 0.2-1.0 mg/dL Aspartate Amino Transferase (AST) 31 13-40 U/L Alanine Aminotransferase (ALT) 51 H 7-40 U/L Alkaline Phosphatase 89 46-116 U/L Total Protein 7.5 5.7-8.2 g/dL Albumin 4.9 H 3.2-4.8 g/dL Lipase 31 12-53 U/L Current Medications Medications (Trade) Dose Ordered Sig/Baljit Route Start Time Stop Time Status Last Admin Ondansetron HCl (Zofran) 4 mg ONCE ONCE IV 03/10/25 01:15 03/10/25 01:16 DC 03/10/25 02:45 Sodium Chloride 1,000 ml @ 1,000 mls/hr Q1H ONCE IVB 03/10/25 01:15 03/10/25 02:14 DC 03/10/25 02:40 Morphine Sulfate 4 mg ONCE ONCE IV 03/10/25 01:15 03/10/25 01:16 DC 03/10/25 02:45 Time of 1ST Reevaluation: 01:42 Reevaluation 1ST: Unchanged Patient Education/Counseling: Diagnosis, Treatment, Need For Follow Up Family Education/Counseling: No Family Present SEPSIS Sepsis Screen Physician Orders Ct Ab Pel With Iv Con Only (03/10/25 01:11) Piperacillin-Tazob 3.375gm (Zosyn 3.375g (03/10/25 03:00) Vital Signs Date Time Temp Pulse Resp B/P (MAP) Pulse Ox O2 Delivery O2 Flow Rate FiO2 03/10/25 02:46 98.9 95 16 131/79 (96) 99 98.9 03/10/25 02:46 95 16 99 Room Air* 0 21 03/10/25 02:45 95 16 131/79 03/10/25 01:13 98.2 106 18 156/76 (102) 98 98.2 Laboratory Tests Test 03/10/25 01:19 White Blood Count 18.6 10^3/uL (4.4-10.8) H Medications Medications Dose Ordered Sig/Baljit Route Start Time Stop Time Status Last Admin Dose Admin Morphine Sulfate 4 mg ONCE ONCE IV 03/10/25 01:15 03/10/25 01:16 DC 03/10/25 02:45 Ondansetron HCl 4 mg ONCE ONCE IV 03/10/25 01:15 03/10/25 01:16 DC 03/10/25 02:45 Sodium Chloride 1,000 ml @ 1,000 mls/hr Q1H ONCE IVB 03/10/25 01:15 03/10/25 02:14 DC 03/10/25 02:40 Departure 1 Departure Time of Disposition: 02:59 Impression: Primary Impression: Acute appendicitis Disposition: 09 ADMITTED INPATIENT Admit to: Med Surg Condition: Guarded Comments Abdominal Pain with Acute Appendicitis Chief Complaint: Abdominal pain, right lower quadrant History of Present Illness: 39-year-old female presenting with generalized abdominal pain that has localized to the right lower quadrant over the past three weeks. The patient reports that the pain has been gradually worsening during this time period. No reported fever, nausea, vomiting, or changes in bowel habits mentioned in the conference center manager. The patient's symptoms and clinical presentation are concerning for acute appendicitis. Review of Systems: Constitutional: No reported fever or chills. Gastrointestinal: Positive for abdominal pain, particularly in the right lower quadrant. No reported nausea, vomiting, diarrhea, or constipation. Genitourinary: Microscopic hematuria noted on urinalysis. All other systems: Not specifically addressed in the conference center manager. Physical Exam: Abdomen: Tenderness noted in the right lower quadrant. No other abdominal examination findings documented. Lab Results: WBC: 18.6 (Elevated) Urinalysis: 1+ blood, no signs of infection Imaging and Other Relevant Results: CT Abdomen/Pelvis: Acute appendicitis with stranding around the appendix and possible perforation or early developing abscess per radiology. Medical Decision Making: Summary Statement: 39-year-old female with three-week history of worsening abdominal pain localizing to the right lower quadrant, with elevated WBC count and CT findings consistent with acute appendicitis with possible perforation. Problem List: 1. Acute appendicitis with possible perforation, 2. Right lower quadrant abdominal pain, 3. Leukocytosis, 4. Microscopic hematuria Differential Diagnosis: Acute appendicitis, perforated appendix, appendiceal abscess, pelvic inflammatory disease, ovarian torsion, ruptured ovarian cyst, urinary tract infection, kidney stone, inflammatory bowel disease, diverticuli tis. ED Course: Patient presented with worsening abdominal pain. Physical exam revealed right lower quadrant tenderness. Labs showed elevated WBC count of 18.6 and urinalysis with 1+ blood but no infection. CT abdomen/pelvis confirmed acute appendicitis with possible perforation or early abscess formation. General Surgery (Dr. Christine) was consulted and accepted the patient for admission. Patient was started on IV antibiotics and IV fluids in the ED. Assessment and Plan: 1. Acute Appendicitis with Possible Perforation: - Admission to General Surgery service under Dr. Christine - Continue IV antibiotics - Continue IV fluid resuscitation - Likely surgical intervention (appendectomy) - Monitor for signs of worsening infection or sepsis 2. Microscopic Hematuria: - Likely incidental finding - Consider follow-up urinalysis after resolution of acute appendicitis 3. Disposition: Admission to inpatient General Surgery service for further management and likely surgical intervention. Additional Notes: Patient admitted to General Surgery service for surgical management Billing Information: ICD-10: K35.2 - Acute appendicitis with generalized peritonitis ICD-10: R10.31 - Right lower quadrant abdominal pain Critical Care Note Critical Care Time?: No Stability Stability form required: No Heart Score Heart Score: Heart Score Response (Comments) Value History N/A 0 EKG Normal 0 Age <45 0 Risk Factors No known risk factors 0 Troponin N/A 0 Total 0 I personally scribed for MITCHELL PECK MD ([email or web address]) on 03/10/25 at 01:17. Electronically submitted by Benito Echevarria ([email or web address]). MITCHELL PECK MD Mar 10, 2025 01:17
[2025-03-10 01:47] LABS: Hematocrit 44.7 % (36.0-46.0); Hemoglobin 15.3 g/dL (12.2-16.2); Mean Corpuscular Hemoglobin 33.3 pg (28.0-32.0); Mean Corpuscular Volume 97.4 fL (80.0-100.0); Nucleated Red Blood Cells % 0.0 %
[2025-03-10 01:53] LABS: Urine Protein, UAD TRACE (Negative)
[2025-03-10 02:03] LABS: Alkaline Phosphatase 89 U/L (46-116); Anion Gap 10 (5-15); BUN/Creatinine Ratio 16.7 (10.0-20.0); Bilirubin, Total 0.9 mg/dL (0.2-1.0); Blood Urea Nitrogen 13 mg/dL (9-23); Calcium 9.3 mg/dL (8.7-10.4); Carbon Dioxide 28 mmol/L (20-31); Chloride 101 mmol/L (98-107); Lipase 31 U/L (12-53); Potassium 3.8 mmol/L (3.5-5.1); Sodium 139 mmol/L (136-145); Total Protein 7.5 g/dL (5.7-8.2)
[2025-03-10 02:04] LABS: Alanine Aminotransferase 51 U/L (7-40); Albumin 4.9 g/dL (3.2-4.8); Glucose 126 mg/dL (74-106)
[2025-03-10] MEDS: SODIUM CHLORIDE 0.9% 1,000 ML IVB ONE (02:40)
[2025-03-10] MEDS: ONDANSETRON HCL 4 MG/2 ML VIAL IV ONE (02:45)
[2025-03-10] MEDS: MORPHINE SULFATE 4 MG/ML SYR/VIAL IV ONE (02:45)
[2025-03-10] MEDS: IOHEXOL 300 MG/ML 100ML BOTTLE IJ ONE (02:46)
--- NOTE | 2025-03-10 02:54 | DVH ---
Exam: CT CT AB PEL WITH IV CON ONLY History: RLQ pain COMPARISON: None Technique: Multidetector spiral CT of the abdomen and pelvis was performed from lung bases to pubic s ymphysis. Intravenous contrast was administered during this examination. Portal venous imaging was o btained. Axial, coronal and sagittal multiplanar reformats were performed by the technologist on a [employer] workstation. Radiation Dose : 1. Abdomen/Pelvis: CTDIvol 10.77 mGy, DLP 645.68 mGy*cm. CONTRAST: Type of contrast: Omniscan 300 Contrast injected: 100 ml Findings: Lung Bases: No acute or significant lung base finding. Normal heart size. No pleural or pericardial effusion. Liver: The liver is enlarged, measuring 21.5 cm in craniocaudal dimension. No focal lesions. Normal hepatic vascular enhancement. Gallbladder and Biliary Tree: Status post cholecystectomy. Spleen: Unremarkable Pancreas: The pancreas is normal in appearance without focal lesions or abnormal enhancement. Adrenal Glands: Unremarkable Kidneys: No hydronephrosis. Bladder: Unremarkable Bowel: The stomach is grossly normal in appearance. Small bowel and colon are normal in caliber and d istribution. No appendix identified. 11 mm appendicolith within the right lower quadrant central to i ll-defined collection of near water attenuation material consistent with probable phlegmon and early organizing abscess. No evidence of intraperitoneal free air. Ascites: Absent Lymphadenopathy: No mesenteric, retroperitoneal or periportal lymphadenopathy. Abdominal Wall and Mesentery: Unremarkable. Vasculature: The visualized abdominal aorta is normal in size and caliber. Abdominal and pelvic vess els demonstrate normal enhancement. Pelvic Organs: Unremarkable. Likely physiologic endometrial fluid. Musculoskeletal: No aggressive focal bony lesions, acute fractures or dislocation. IMPRESSION: 1. Ill-defined right lower quadrant fluid collection surrounding an 11 mm appendicolith in the absenc e of an identifiable normal or abnormal appendix consistent with perforated acute appendicitis and ea rly organizing abscess. Critical Result: Suspected perforated acute appendicitis Findings discussed with MITCHELL PECK at 03/10/2025 02:46 AM, and acknowledged receipt and understa nding of the findings. Radiation optimization: All CT scans at this facility use at least one of these dose optimization casper hniques: automated exposure control mA and/or kV adjustment per patient size (includes targeted exam s where dose is matched to clinical indication) or iterative reconstruction.
[2025-03-10] MEDS: PIPERACILLIN-TAZOB 3.375GM 100 ML IV ONE (03:01)
--- NOTE | 2025-03-10 04:22 | DVHHP2 ---
History of Present Illness Reason for Visit: Acute appendicitis History of Present Illness The patient is a 39-year-old female 1 para 1 AB 0 who denies past medical history presented to [facility] ED with complaint of abdominal pain. Patient reports symptoms progressively get worse with epigastric abdominal pain, radiating to her right lower quadrant, rating 9/10 numeric scale, getting worse that prompted this visit. Patient reports she recently had section surgery at [facility] on February 13, 2025 successfully. Patient was seen and evaluated in the ED, laboratory data shows elevated WBC 18.6, platelets 344, sodium 139, potassium 3.8, BUN 13, creatinine 0.78, glucose 126, calcium 9.3, albumin 4.9, troponin 3, blood pressure 130/74, heart rate 88, temperature 98.9 F, O2 saturation 99% on room air. Abdomen/pelvis CT revealing ill-defined right lower quadrant fluid collection surrounding an 11 mm appendicolith in the absence of an identifiable normal or abnormal appendix consistent with perforated acute appendicitis and early organizing abscess. Patient was started on IV antibiotic regimen Zosyn, given morphine sulfate 4 mg IV x1, please see medication orders section in the computer. On my assessment, patient denied chest pain, no headache, no dizziness, no diaphoresis, no shortness of breath, no nausea, no vomiting, no diarrhea, no fever, no chills. Patient was admitted for further evaluation and medical management. Past Medical History Denies past medical history Past Surgical History February 13, 2025 Family History Reviewed, noncontributory to the management of this case. Past Social History The patient lives at home, denies smoking, alcohol or illicit drugs abuse. Review of Systems Constitutional: No: Fever, Chills, Sweats, Weakness, Malaise, Other Eyes: No: Pain, Vision change, Conjunctivae inflammation, Eyelid inflammation, Other, Redness ENT: No: Ear pain, Ear discharge, Nose pain, Nose discharge, Nose congestion, Mouth pain, Mouth swelling, Throat pain, Throat swelling, Other Respiratory: No: Cough, Dry, Shortness of breath, SOB with excertion, Wheezing, Hemoptysis, Pleuritic Pain, Sputum, Wheezing, Other Cardiovascular: No: Chest Pain, Palpitations, Orthopnea, Paroxysmal Noc. Dyspnea, Edema, Lt Headedness, Other Gastrointestinal: Abdominal Pain; No: Nausea, Vomiting, Diarrhea, Constipation, Melena, Hematochezia, Other Genitourinary: No Dysuria, No Frequency, No Incontinence, No Hematuria, No Retention, No Other Musculoskeletal: No: other, neck pain, shoulder pain, arm pain, back pain, hand pain, leg pain, foot pain Skin: No: Rash, Lesions, Jaundice, Bruising, Other Neurological: No: Weakness, Numbness, Incoordination, Change in speech, Confusion, Seizures, Other Allergies: Uncoded Allergies: peanut, food dyes (Allergy, Severe, 01/30/25) Exam Vital Signs Vital Signs Date Time Temp Pulse Resp B/P (MAP) Pulse Ox O2 Delivery O2 Flow Rate FiO2 03/10/25 03:15 88 14 130/74 03/10/25 02:46 98.9 99 98.9 03/10/25 02:46 Room Air* 0 21 General Appearance: Alert, Oriented X3, Cooperative, No acute distress HEENT: Atraumatic, PERRLA, EOMI, Mucous membr. moist/pink Respiratory: Clear to auscultation, Normal air movement Cardiovascular: Regular rate, Normal S1, Normal S2, No murmurs Abdominal: Normal bowel sounds, Soft, No hepatospenomegaly, No masses, Other (Reports tenderness) Extremities: No clubbing, No cyanosis, No edema, Normal pulses, No tenderness/swelling Skin: No rashes, No breakdown, No significant lesion Neuro: Normal gait, Normal speech, Strength at 5/5 X4 ext, Normal tone, Sensation intact, Cranial nerves 3-12 NL, Reflexes 2+ Psych/Mental Status: Mental status NL, Mood NL Labs/Xrays Labs Test 03/10/25 01:44 03/10/25 01:19 Range/Units Urine Color Yellow Yellow Urine Clarity Clear Clear Urine pH 5.5 5.0-9.0 Urine Specific [place] 1.023 1.001-1.035 Urine Protein Trace H Negative Urine Ketones Negative Negative Urine Blood 1+ H Negative /uL Urine Nitrite Negative Negative Urine Bilirubin Negative Negative Urine Urobilinogen Normal Negative mg/dL Urine Leukocyte Esterase Trace Negative /uL Urine RBC 1 0 - 4 /hpf Urine Microscopic WBC 4 0-5 /HPF Urine Squamous Epithelial Cells None seen <5 /hpf Urine Bacteria None seen None Seen /hpf Urine Mucus Few None Seen Urine Glucose Normal Normal mg/dL Urine Test Negative Negative White Blood Count 18.6 H 4.4-10.8 10^3/uL Red Blood Count 4.59 4.0-5.20 10^6/uL Hemoglobin 15.3 12.2-16.2 g/dL Hematocrit 44.7 36.0-46.0 % Mean Corpuscular Volume 97.4 80.0-100.0 fL Mean Corpuscular Hemoglobin 33.3 H 28.0-32.0 pg Mean Corpuscular Hemoglobin Concent 34.2 32.0-36.0 g/dL Red Cell Distribution Width 12.5 11.8-14.3 % Platelet Count 344 140-450 10^3/uL Mean Platelet Volume 8.4 6.9-10.8 fL Neutrophils (%) (Auto) 86.3 H 37.0-80.0 % Lymphocytes (%) (Auto) 8.7 L 10.0-50.0 % Monocytes (%) (Auto) 4.7 0.0-12.0 % Eosinophils (%) (Auto) 0.1 0.0-7.0 % Basophils (%) (Auto) 0.2 0.0-2.0 % Neutrophils # (Auto) 16.1 H 1.6-8.6 10 ^3/uL Lymphocytes # (Auto) 1.6 0.4-5.4 10 ^3/uL Monocytes # (Auto) 0.9 0-1.3 10 ^3/uL Eosinophils # (Auto) 0 0-0.8 10 ^3/uL Basophils # (Auto) 0 0-0.2 10 ^3/uL Nucleated Red Blood Cells 0.0 % Sodium Level 139 136-145 mmol/L Potassium Level 3.8 3.5-5.1 mmol/L Chloride Level 101 98-107 mmol/L Carbon Dioxide Level 28 20-31 mmol/L Anion Gap 10 5-15 Blood Urea Nitrogen 13 9-23 mg/dL Creatinine 0.78 0.550-1.02 mg/dL Glomerular Filtration Rate Calc 100 >90 mL/min BUN/Creatinine Ratio 16.7 10.0-20.0 Serum Glucose 126 H 74-106 mg/dL Calcium Level 9.3 8.7-10.4 mg/dL Total Bilirubin 0.9 0.2-1.0 mg/dL Aspartate Amino Transferase (AST) 31 13-40 U/L Alanine Aminotransferase (ALT) 51 H 7-40 U/L Alkaline Phosphatase 89 46-116 U/L Total Protein 7.5 5.7-8.2 g/dL Albumin 4.9 H 3.2-4.8 g/dL Lipase 31 12-53 U/L PATIENT: FANNIE WHITET: [id number] UNIT: [id number] : 1985 LOC: ER ROOM / BED: / AGE / SEX: 39 / F ADM STATUS: REG ER SERVICE 0111 ORDERING PHYSICIAN: MITCHELL PECK MD PROCEDURE(s): ABPLIV - CT AB PEL WITH IV CON ONLY REASON: RLQ pain ORDER NUMBER(s): [id number], ACCESSION NUMBER(s): [id number] Exam: CT CT AB PEL WITH IV CON ONLY History: RLQ pain COMPARISON: None Technique: Multidetector spiral CT of the abdomen and pelvis was performed from lung bases to pubic symphysis. Intravenous contrast was administered during this examination. Portal venous imaging was obtained. Axial, coronal and sagittal multiplanar reformats were performed by the technologist on a separate workstation. Radiation Dose: 1. Abdomen/Pelvis: CTDIvol 10.77 mGy, DLP 645.68 mGy*cm. CONTRAST: Type of contrast: Omniscan 300 Contrast injected: 100 ml Findings: Lung Bases: No acute or significant lung base finding. Normal heart size. No pleural or pericardial effusion. Liver: The liver is enlarged, measuring 21.5 cm in craniocaudal dimension. No focal lesions. Normal hepatic vascular enhancement. Gallbladder and Biliary Tree: Status post cholecystectomy. Spleen: Unremarkable Pancreas: The pancreas is normal in appearance without focal lesions or abnormal enhancement. Adrenal Glands: Unremarkable Kidneys: No hydronephrosis. Bladder: Unremarkable Bowel: The stomach is grossly normal in appearance. Small bowel and colon are normal in caliber and distribution. No appendix identified. 11 mm appendicolith within the right lower quadrant central to ill-defined collection of near water attenuation material consistent with probable phlegmon and early organizing abscess. No evidence of intraperitoneal free air. Ascites: Absent Lymphadenopathy: No mesenteric, retroperitoneal or periportal lymphadenopathy. Abdominal Wall and Mesentery: Unremarkable. Vasculature: The visualized abdominal aorta is normal in size and caliber. Abdominal and pelvic vessels demonstrate normal enhancement. Pelvic Organs: Unremarkable. Likely physiologic endometrial fluid. Musculoskeletal: No aggressive focal bony lesions, acute fractures or dislocation. IMPRESSION: 1. Ill-defined right lower quadrant fluid collection surrounding an 11 mm appendicolith in the absence of an identifiable normal or abnormal appendix consistent with perforated acute appendicitis and early organizing abscess. Critical Result: Suspected perforated acute appendicitis SEPSIS Sepsis Screen Date sepsis recognized/suspect: Mar 10, 2025 Time Sepsis recognized/suspect: 249 Recent Procedure: No On Antibiotic Therapy: No Respiratory Rate >20: No Heart Rate >90: No Temp<36 C (96.8 F) or >38.3 C: No SBP <90 or MAP <65 mmHG: No New Acute Mental Status Change: No Is the patient on CPAP, BIPAP,: No Physician Orders Ct Ab Pel With Iv Con Only (03/10/25 01:11) Complete Blood Count (03/10/25 04:17) Comprehensive Metabolic Panel (03/10/25 04:17) Zosyn Extended Infusion (03/10/25 06:00) Admit (03/10/25 04:17) Allergies (03/10/25 04:17) Code Status (03/10/25 04:17) 0.9% Ns 1000 Ml (03/10/25 04:30) Oxygen Per Hour (03/10/25 04:17) Hydrocodone-Acet 5/325mg Tab ([place] 5/32 (03/10/25 04:30) Ondansetron Hcl (Zofran) (03/10/25 04:30) Docusate Sodium Capsule (Colace Capsule) (03/10/25 04:30) Complete Blood Count (03/11/25 04:00) Comprehensive Metabolic Panel (03/11/25 04:00) Npo (Nothing By Mouth) Diet (03/10/25 Breakfast) Condition: Serious (03/10/25 04:17) Acetaminophen Tablet (Tylenol Tablet) (03/10/25 04:30) Bedrest With Bathroom Privileg (03/10/25 04:17) Morphine Sulfate Injection (03/10/25 04:30) Sequential Compression Device (03/10/25 ) Nitroglycerin Sublingual (Ntrostat Subli (03/10/25 04:30) Morphine Sulfate Injection (03/10/25 04:30) Stat Ekg For Chest Pain (03/10/25 04:17) Notify Md Of Changes From Base (03/10/25 04:17) Bench Mechanic For 24 Hours (03/10/25 04:17) Emergency Dysrhythmia Protocol (03/10/25 04:17) Rhythm Strips Once Every Shift (03/10/25 04:17) Oxygen By Nasal Cannula (03/10/25 04:17) Vital Signs Date Time Temp Pulse Resp B/P (MAP) Pulse Ox O2 Delivery O2 Flow Rate FiO2 03/10/25 03:15 88 14 130/74 03/10/25 02:46 98.9 95 16 131/79 (96) 99 98.9 03/10/25 02:46 95 16 99 Room Air* 0 21 03/10/25 02:45 95 16 131/79 03/10/25 01:13 98.2 106 18 156/76 (102) 98 98.2 Laboratory Tests Test 03/10/25 01:19 White Blood Count 18.6 10^3/uL (4.4-10.8) H Medications Medications Dose Ordered Sig/Baljit Route Start Time Stop Time Status Last Admin Dose Admin Morphine Sulfate 4 mg ONCE ONCE IV 03/10/25 01:15 03/10/25 01:16 DC 03/10/25 02:45 4 MG Ondansetron HCl 4 mg ONCE ONCE IV 03/10/25 01:15 03/10/25 01:16 DC 03/10/25 02:45 4 MG Piperacillin Sod/ Tazobactam Sod 100 ml @ 100 mls/hr ONCE ONCE IV 03/10/25 03:00 03/10/25 03:59 DC 03/10/25 03:01 100 MLS/HR Sodium Chloride 1,000 ml @ 1,000 mls/hr Q1H ONCE IVB 03/10/25 01:15 03/10/25 02:14 DC 03/10/25 02:40 1,000 MLS/HR Assessment/Plan Assessment/Plan Acute appendicitis Acute abdominal pain Leukocytosis, unspecified Plan 1. Admit to telemetry unit 2. Breathing treatment 3. Pain control management 4. IV antibiotic management 5. Management of fluids and electrolytes 6. Consultation for surgical team 7. Diagnostic test abdomen/pelvis CT 8. DVT prophylaxis on SCDs 9. Repeat labs CBC, CMP in a.m. 10. Home medication reviewed and reconciled 11. Continue with current medical management 12. Treatment plan discussed with patient and RN. Patient verbalized understanding. Plan discussed with: Patient, Other (RN) My Orders Orders - MATT MARTÍNEZ DNP Procedure Category Date Status Time Complete Blood Count LAB 03/10/25 Verified 04:17 Comprehensive LAB 03/10/25 Verified Metabolic Panel 04:17 Zosyn Extended PHA 03/10/25 Verified Infusion 06:00 Admit ADMIT 03/10/25 Verified 04:17 Allergies [facility] 03/10/25 Verified 04:17 Code Status CODE 03/10/25 Verified 04:17 0.9% Ns 1000 Ml PHA 03/10/25 Verified 04:30 Oxygen Per Hour RT 03/10/25 Verified 04:17 Hydrocodone-Acet PHA 03/10/25 Verified 5/325mg Tab ([place] 04:30 Ondansetron Hcl [facility] 03/10/25 Verified (Zofran) 04:30 Docusate Sodium [facility] 03/10/25 Verified Capsule (Colace 04:30 Complete Blood Count LAB 03/11/25 Verified 04:00 Comprehensive LAB 03/11/25 Verified Metabolic Panel 04:00 Npo (Nothing By DIET 03/10/25 Verified Mouth) Diet Breakfast Condition: Serious [facility] 03/10/25 Verified 04:17 Acetaminophen Tablet [facility] 03/10/25 Verified (Tylenol Tablet) 04:30 Bedrest With Bathroom [facility] 03/10/25 Verified Privileg 04:17 Morphine Sulfate [facility] 03/10/25 Verified Injection 04:30 Sequential [facility] 03/10/25 Verified Compression Device Nitroglycerin [facility] 03/10/25 Verified Sublingual (Ntrostat 04:30 Morphine Sulfate [facility] 03/10/25 Verified Injection 04:30 Stat Ekg For Chest [facility] 03/10/25 Verified Pain 04:17 Notify Md Of Changes [facility] 03/10/25 Verified From Base 04:17 Bench Mechanic For [facility] 03/10/25 Verified 24 Hours 04:17 Emergency Dysrhythmia [facility] 03/10/25 Verified Protocol 04:17 Rhythm Strips Once [facility] 03/10/25 Verified Every Shift 04:17 Oxygen By Nasal RT 03/10/25 Verified Cannula 04:17 Problem List: (1) Acute appendicitis (2) Acute abdominal pain (3) Leukocytosis, unspecified Date of Service: Mar 10, 2025 Billing Provider: MATT MARTÍNEZ DNP Common Visit Codes: [id number] INP/OBS CARE (HIGH) MATT MARTÍNEZ DNP Mar 10, 2025 04:22
[2025-03-10] MEDS ORDERED: MORPHINE SULFATE INJ 2 MG/ml SYRG IV PRN (04:30)
[2025-03-10] MEDS ORDERED: NITROGLYCERIN 0.4 MG SL TAB SL PRN (04:30)
[2025-03-10] MEDS: SODIUM CHLORIDE 0.9% 1,000 ML IV SCH (04:30)
[2025-03-10] MEDS ORDERED: ONDANSETRON HCL 4 MG/2 ML VIAL IV PRN (04:30)
[2025-03-10 05:02] LABS: Hematocrit 43.1 % (36.0-46.0); Hemoglobin 14.7 g/dL (12.2-16.2); Mean Corpuscular Hemoglobin 33.7 pg (28.0-32.0); Mean Corpuscular Volume 98.9 fL (80.0-100.0); Nucleated Red Blood Cells % 0.0 %
[2025-03-10] MEDS: SODIUM CHLORIDE 0.9% 500 ML IV ONE (05:11)
[2025-03-10 05:18] LABS: Alkaline Phosphatase 83 U/L (46-116); Anion Gap 10 (5-15); BUN/Creatinine Ratio 17.6 (10.0-20.0); Blood Urea Nitrogen 12 mg/dL (9-23); Calcium 9.1 mg/dL (8.7-10.4); Carbon Dioxide 24 mmol/L (20-31); Chloride 104 mmol/L (98-107); Sodium 138 mmol/L (136-145); Total Protein 7.1 g/dL (5.7-8.2)
[2025-03-10 05:19] LABS: Alanine Aminotransferase 48 U/L (7-40); Albumin 4.5 g/dL (3.2-4.8); Bilirubin, Total 1.1 mg/dL (0.2-1.0); Glucose 135 mg/dL (74-106); Potassium 3.5 mmol/L (3.5-5.1)
[2025-03-10] MEDS: HYDROmorphone HCL 2 MG/ML VL/or syr IV ONE (05:33)
[2025-03-10] MEDS: ACETAMINOPHEN 325 MG TAB PO PRN (08:12)
--- NOTE | 2025-03-10 08:28 | DVHINCON2 ---
Date of service: Mar 10, 2025 History of Present Illness 39-year-old otherwise healthy female status post recent on February 13 now complaining of two day history of right lower quadrant abdominal pain as sociated with fevers. Past Medical History None Past Surgical History Recent as mentioned Family History: Patient reports no known family medical history. Family History Noncontributory Social History No alcohol, tobacco, IV drug use Allergies: Uncoded Allergies: peanut, food dyes (Allergy, Severe, 01/30/25) Home Meds Active Scripts Ibuprofen (Ibuprofen) 800 Mg Tab, 1 TAB PO TID, #90 TAB Prov:RADHA HARTLEY CNM 02/13/25 Current Medications Current Medications Medications (Trade) Dose Ordered Sig/Baljit Route PRN Reason Start Time Stop Time Status Last Admin Piperacillin Sod/ Tazobactam Sod 100 ml @ 25 mls/hr Q8HR IV 03/10/25 14:00 Sodium Chloride 1,000 ml @ 60 mls/hr [id number] IV 03/10/25 04:30 03/10/25 04:49 DC Acetaminophen/ Hydrocodone Bitart ([place] 5/325MG Tab) 1 tab Q4HP PRN PO MODERATE PAIN (4-6 PAIN SCALE) 03/10/25 04:30 Ondansetron HCl (Zofran) 4 mg Q4HP PRN IV NAUSEA / VOMITING 03/10/25 04:30 Docusate Sodium (Colace Capsule) 100 mg BIDPRN PRN PO FOR CONSTIPATION 03/10/25 04:30 Acetaminophen (Tylenol Tablet) 650 mg Q6HP PRN PO PAIN SCALE 1-3 OR TEMP>100.4 03/10/25 04:30 Morphine Sulfate 2 mg Q4HPRN PRN IV SEVERE PAIN (7-10 PAIN SCALE) 03/10/25 04:30 Nitroglycerin (Ntrostat Sublingual) 0.4 mg Q5MINP PRN SL FOR CHEST PAIN 03/10/25 04:30 Morphine Sulfate 2 mg Q30M PRN IV FOR CHEST PAIN 03/10/25 04:30 Vital Signs Vital Signs Date Time Temp Pulse Resp B/P (MAP) Pulse Ox O2 Delivery O2 Flow Rate FiO2 03/10/25 06:20 Room Air* 0 21 03/10/25 05:33 101 21 129/81 03/10/25 02:46 98.9 99 98.9 Physical Exam GEN: Age-appropriate female in mild distress from pain. Alert. HEENT: Normocephalic atraumatic. Moist mucous membranes. Anicteric sclerae. CV: Slightly tachycardic but regular rhythm Respiratory: CTAB ABD: Localized right lower quadrant tenderness to palpation with guarding and rebound CT abdomen and pelvis: Ill-defined right lower quadrant fluid collection surrounding an 11 mm appendicolith in the absence of an identifiable normal or abnormal appendix consistent with perforated acute appendicitis and early orga nizing abscess Labs/Diagnostic Data Labs Test 03/10/25 04:40 03/10/25 01:44 03/10/25 01:19 Range/Units White Blood Count 17.7 H 4.4-10.8 10^3/uL Red Blood Count 4.36 4.0-5.20 10^6/uL Hemoglobin 14.7 12.2-16.2 g/dL Hematocrit 43.1 36.0-46.0 % Mean Corpuscular Volume 98.9 80.0-100.0 fL Mean Corpuscular Hemoglobin 33.7 H 28.0-32.0 pg Mean Corpuscular Hemoglobin Concent 34.1 32.0-36.0 g/dL Red Cell Distribution Width 12.5 11.8-14.3 % Platelet Count 292 140-450 10^3/uL Mean Platelet Volume 8.1 6.9-10.8 fL Neutrophils (%) (Auto) 86.5 H 37.0-80.0 % Lymphocytes (%) (Auto) 8.3 L 10.0-50.0 % Monocytes (%) (Auto) 4.6 0.0-12.0 % Eosinophils (%) (Auto) 0.0 0.0-7.0 % Basophils (%) (Auto) 0.6 0.0-2.0 % Neutrophils # (Auto) 15.3 H 1.6-8.6 10 ^3/uL Lymphocytes # (Auto) 1.5 0.4-5.4 10 ^3/uL Monocytes # (Auto) 0.8 0-1.3 10 ^3/uL Eosinophils # (Auto) 0 0-0.8 10 ^3/uL Basophils # (Auto) 0.1 0-0.2 10 ^3/uL Nucleated Red Blood Cells 0.0 % Sodium Level 138 136-145 mmol/L Potassium Level 3.5 3.5-5.1 mmol/L Chloride Level 104 98-107 mmol/L Carbon Dioxide Level 24 20-31 mmol/L Anion Gap 10 5-15 Blood Urea Nitrogen 12 9-23 mg/dL Creatinine 0.68 0.550-1.02 mg/dL Glomerular Filtration Rate Calc 114 >90 mL/min BUN/Creatinine Ratio 17.6 10.0-20.0 Serum Glucose 135 H 74-106 mg/dL Calcium Level 9.1 8.7-10.4 mg/dL Total Bilirubin 1.1 H 0.2-1.0 mg/dL Aspartate Amino Transferase (AST) 30 13-40 U/L Alanine Aminotransferase (ALT) 48 H 7-40 U/L Alkaline Phosphatase 83 46-116 U/L Total Protein 7.1 5.7-8.2 g/dL Albumin 4.5 3.2-4.8 g/dL Urine Color Yellow Yellow Urine Clarity Clear Clear Urine pH 5.5 5.0-9.0 Urine Specific [place] 1.023 1.001-1.035 Urine Protein Trace H Negative Urine Ketones Negative Negative Urine Blood 1+ H Negative /uL Urine Nitrite Negative Negative Urine Bilirubin Negative Negative Urine Urobilinogen Normal Negative mg/dL Urine Leukocyte Esterase Trace Negative /uL Urine RBC 1 0 - 4 /hpf Urine Microscopic WBC 4 0-5 /HPF Urine Squamous Epithelial Cells None seen <5 /hpf Urine Bacteria None seen None Seen /hpf Urine Mucus Few None Seen Urine Glucose Normal Normal mg/dL Urine Test Negative Negative Lipase 31 12-53 U/L Assessment 1. Perforated acute appendicitis with possible abscess Plan/Recommendation 1. Laparoscopic appendectomy possible open surgery Informed consent: The surgery and its risks including but not limited to infection, bleeding requiring possible blood transfusion with the risk of hepatitis or HIV infection, possible open surgery, possible postoperative infection requiring further treatment such as drainage, possible perioperative [place] or stroke were explained to the patient with the help of an online steel barrel reamer. All questions were answered to her satisfaction. She expressed verbal understanding and wished to proceed with the surgery. Plan discussed with: Patient JOHN HERNANDEZ MD Mar 10, 2025 08:27
[2025-03-10] MEDS: MORPHINE SULFATE INJ 2 MG/ml SYRG IV PRN (08:29)
[2025-03-10] MEDS: LIDOCAINE W/ EPINEPHRINE 1% 20ML VIAL ONE (08:55)
[2025-03-10] MEDS: SUCCINYLCHOLINE CHLORIDE 20 MG/ML 10ML VIAL IV ONE (09:06)
[2025-03-10] MEDS ORDERED: HYDROmorphone HCL 2 MG/ML VL/or syr ONE (09:08)
[2025-03-10] MEDS ORDERED: fentaNYL CITRATE 100 MCG/2 ML VL ONE (09:08)
[2025-03-10] MEDS ORDERED: ROCURONIUM 10MG/ML 10ML VIAL IV ONE (10:17)
[2025-03-10] MEDS ORDERED: ONDANSETRON HCL 4 MG/2 ML VIAL ONE (10:17)
[2025-03-10] MEDS ORDERED: PROPOFOL 10 MG/ML 20 ML IV ONE (10:17)
[2025-03-10] MEDS ORDERED: SUGAMMADEX 200mg/2ml Vial (100MG/ML) IV ONE (10:54)
--- NOTE | 2025-03-10 11:12 | DVHOP2 ---
Operative Report - 2 Report Details Date: 03/10/25 Preop Diagnosis: 1. Perforated appendicitis Postop Diagnosis: 1. Same Surgeon: Joseph Waller MD Batter Mixer Helper: None Anesthesiologist: Dr. Walton Anesthesia: General, Local Drains: None Consent: The surgery and its risks including but not limited to infection, bleeding requiring possible blood transfusion with the risk of hepatitis or HIV infection, possible open surgery, possible perioperative [place] or stroke were explained to the patient with the help of an online epic prelude analyst. All questions were answered to her satisfaction. She expressed verbal understanding and wished to proceed with the surgery. Complications: None Estimated Blood Loss: 20 mL Fluids: 1100 mL crystalloid Name of Procedure Performed Laparoscopic appendectomy Procedure Details Procedure Details: After induction of general anesthesia, a Rollins catheter was placed by the OR nursing staff. Patient's abdomen was then prepped and draped in standard surgical fashion. A small infraumbilical incision was made and this incision was taken through the abdominal wall down to the fascia which was opened sharply. Peritoneum was then bluntly divided gaining access to the intra- abdominal cavity. Interrupted 0 Vicryl sutures were placed through the fascial incision and using an open technique, Pravin trocar was introduced and secured using the Vicryl sutures. Abdomen was insufflated to 15 mmHg. Camera was ins erted and visual examination of the intestine under the fascial incision appeared normal without injury. Under direct visualization, a 5 mm bladeless trocar was placed in the left lower quadrant and a 2nd 5 mm bladeless trocar was placed in the suprapubic region both under direct visualization. Examination of the right lower quadrant revealed diffuse inflammatory changes with omentum adhering to the peritoneum secondary to inflammatory adhesions. This was peeled off revealing a gangrenous looking appendix with a small perforation with minimal drainage. Rest of the intestine was then gently off releasing the inflammatory adhesions. Endovascular stapler was used to staple and divide the mesoappendix up to the base of the appendix and a another stapler was used to staple across the base of the appendix without complication. The appendix was then removed from the abdominal cavity using an endo pouch bag and sent off the surgical field. Abdomen was then re-insufflated. The staple line appeared intact without leaks or bleeding. There was very small amount of serosanguineous fluid collected in the pelvis and this was aspirated. Pelvic area was then well irrigated until fluid was clear. Trocars were then removed under direct visualization as the abdomen was deflated. Additional interrupted 0 Vicryl sutures were placed through the infraumbilical fascial incision and the sutures were tied down closing off the infraumbilical fascia. Surgical sites were irrigated and then injected with 20 mL of 1% lidocaine with epinephrine. Skin incisions were closed using jasper. Surgical sites were cleaned and dried and dressings were applied. Sponge, needle, instrument count at the end of the case were reported to be correct by the nursing staff. The patient tolerated procedure well and was awakened, extubated and transferred to recovery in stable condition. Specimen: Appendix Condition Stable Disposition Still a Patient JOSEPH WALLER MD Mar 10, 2025 11:12
[2025-03-10] MEDS ORDERED: MEPERIDINE HCL (25 MG/ML) 1ML VIAL IV PRN (11:15)
[2025-03-10] MEDS ORDERED: HYDROmorphone HCL 2 MG/ML VL/or syr IV PRN (11:15)
[2025-03-10] MEDS ORDERED: ACETAMINOPHEN IV 1000 MG/100ML (10MG/ML) IV PRN (11:15)
[2025-03-10] MEDS: PIPERACILLIN-TAZOB 3.375GM 100 ML IV SCH (14:00)
[2025-03-10] MEDS: HYDROcodone-ACET 5/325MG TAB PO PRN (21:35)
[2025-03-11] VITALS (8 sets, daily range): BP systolic 112–137; BP diastolic 73–86; PULSE 86–95; RESP 16–19; TEMP 97.4–98.6; O2SAT 93–99
[2025-03-11 07:21] LABS: Hematocrit 38.9 % (36.0-46.0); Hemoglobin 13.3 g/dL (12.2-16.2); Mean Corpuscular Hemoglobin 33.9 pg (28.0-32.0); Mean Corpuscular Volume 99.5 fL (80.0-100.0); Nucleated Red Blood Cells % 0.0 %
[2025-03-11 07:28] LABS: Alanine Aminotransferase 33 U/L (7-40); Albumin 4.2 g/dL (3.2-4.8); Alkaline Phosphatase 88 U/L (46-116); Anion Gap 10 (5-15); BUN/Creatinine Ratio 16.0 (10.0-20.0); Calcium 9.5 mg/dL (8.7-10.4); Carbon Dioxide 24 mmol/L (20-31); Chloride 103 mmol/L (98-107); Glucose 103 mg/dL (74-106); Potassium 3.5 mmol/L (3.5-5.1); Sodium 137 mmol/L (136-145); Total Protein 6.6 g/dL (5.7-8.2)
[2025-03-11 07:29] LABS: Bilirubin, Total 0.7 mg/dL (0.2-1.0)
[2025-03-11 07:31] LABS: Blood Urea Nitrogen 8 mg/dL (9-23)
[2025-03-11] MEDS: SODIUM CHLORIDE 0.9% 1,000 ML IV ONE (07:34)
[2025-03-11] MEDS: MORPHINE SULFATE 4 MG/ML SYR/VIAL IV ONE (07:34)
[2025-03-11] MEDS: ONDANSETRON HCL 4 MG/2 ML VIAL IV ONE ×2 (07:35)
--- NOTE | 2025-03-11 09:32 | DVHPN2 ---
Progress Note - Dictate Date Seen: Mar 11, 2025 Medical Necessity Reason Pt with a Central, PICC or Fol: No Subjective E: no major events o/n. pain is slt better than yesterday. vital signs Vital Sign Date Time Temp Pulse Resp B/P (MAP) Pulse Ox O2 Delivery O2 Flow Rate FiO2 03/11/25 08:47 98.6 91 16 112/76 (88) 97 98.6 03/10/25 20:00 Room Air* 0 21 Total Intake and Output 03/10/25 03/10/25 03/11/25 15:00 23:00 07:00 Intake Total 475 ml 2390 ml Balance 475 ml 2390 ml medications Current Medications Medications Dose Ordered Sig/Baljit Route Start Time Stop Time Status Last Admin Dose Admin Piperacillin Sod/ Tazobactam Sod 100 ml @ 25 mls/hr Q8HR IV 03/10/25 14:00 03/11/25 06:01 25 MLS/HR Acetaminophen/ Hydrocodone Bitart 1 tab Q4HP PRN PO 03/10/25 04:30 03/10/25 21:35 1 TAB Ondansetron HCl 4 mg Q4HP PRN IV 03/10/25 04:30 Docusate Sodium 100 mg BIDPRN PRN PO 03/10/25 04:30 Acetaminophen 650 mg Q6HP PRN PO 03/10/25 04:30 03/10/25 08:12 650 MG Morphine Sulfate 2 mg Q4HPRN PRN IV 03/10/25 04:30 03/11/25 04:08 2 MG Nitroglycerin 0.4 mg Q5MINP PRN SL 03/10/25 04:30 Morphine Sulfate 2 mg Q30M PRN IV 03/10/25 04:30 objective GEN: NAD ABD: surgical incisions clean and dry. laboratory and microbiology Laboratory Tests 03/11/25 04:32 Test 03/11/25 04:32 Range/Units Serum Glucose 103 74-106 mg/dL Assessment/Plan A: 1. s/p lap appendectomy POD #1 with persistent leukocystosis P: 1. cont iv abx. Plan discussed with: Patient JOHN HERNANDEZ MD Mar 11, 2025 09:32
[2025-03-11] MEDS: DOCUSATE SOD 100 MG CAP PO PRN (10:01)
[2025-03-11] MEDS: HYDROmorphone HCL 2 MG/ML VL/or syr IV PRN (21:12)
[2025-03-12] VITALS (9 sets, daily range): BP systolic 110–140; BP diastolic 64–94; PULSE 56–94; RESP 16–24; TEMP 96.9–99.2; O2SAT 92–99
[2025-03-12 06:25] LABS: Hematocrit 38.7 % (36.0-46.0); Hemoglobin 13.3 g/dL (12.2-16.2); Mean Corpuscular Hemoglobin 33.7 pg (28.0-32.0); Mean Corpuscular Volume 98.3 fL (80.0-100.0); Nucleated Red Blood Cells % 0.0 %
[2025-03-12 06:42] LABS: Anion Gap 11 (5-15); Carbon Dioxide 26 mmol/L (20-31); Chloride 102 mmol/L (98-107); Sodium 139 mmol/L (136-145)
[2025-03-12 06:43] LABS: Calcium 9.0 mg/dL (8.7-10.4)
[2025-03-12 06:48] LABS: BUN/Creatinine Ratio 16.4 (10.0-20.0); Blood Urea Nitrogen 9 mg/dL (9-23); Glucose 96 mg/dL (74-106)
[2025-03-12 06:50] LABS: Potassium 3.3 mmol/L (3.5-5.1)
--- NOTE | 2025-03-12 08:57 | DVHPN2 ---
Progress Note - Dictate Date Seen: Mar 12, 2025 Medical Necessity Reason Pt with a Central, PICC or Fol: No Subjective E: no major events o/n. feels better than yesterday but still c/o incisional pain. katt po. ambulating. vital signs Vital Sign Date Time Temp Pulse Resp B/P (MAP) Pulse Ox O2 Delivery O2 Flow Rate FiO2 03/12/25 08:21 96.9 88 17 116/82 (93) 93 96.9 03/11/25 20:00 Room Air* 0 21 Total Intake and Output 03/11/25 03/11/25 03/12/25 15:00 23:00 07:00 Intake Total 800 ml 300 ml Balance 800 ml 300 ml medications Current Medications Medications Dose Ordered Sig/Baljit Route Start Time Stop Time Status Last Admin Dose Admin Piperacillin Sod/ Tazobactam Sod 100 ml @ 25 mls/hr Q8HR IV 03/10/25 14:00 03/12/25 06:08 25 MLS/HR Acetaminophen/ Hydrocodone Bitart 1 tab Q4HP PRN PO 03/10/25 04:30 03/11/25 20:17 1 TAB Ondansetron HCl 4 mg Q4HP PRN IV 03/10/25 04:30 Docusate Sodium 100 mg BIDPRN PRN PO 03/10/25 04:30 03/11/25 10:01 100 MG Acetaminophen 650 mg Q6HP PRN PO 03/10/25 04:30 03/10/25 08:12 650 MG Nitroglycerin 0.4 mg Q5MINP PRN SL 03/10/25 04:30 Morphine Sulfate 2 mg Q30M PRN IV 03/10/25 04:30 Hydromorphone HCl 0.5 mg Q4HPRN PRN IV 03/11/25 09:45 03/12/25 06:18 0.5 MG objective GEN: NAD ABD: surgical incisions clean and dry. laboratory and microbiology Laboratory Tests 03/12/25 04:39 Test 03/12/25 04:39 Range/Units Serum Glucose 96 74-106 mg/dL Assessment/Plan A: 1. s/p lap appendectomy POD #2 improving. P: 1. stable from surgery POV 2. ok to shower and get incisions wet 3. recommend 5 more days of oral abx (augmentin or cipro/flagyl) 4. f/u [facility]. call [phone] for appt. Plan discussed with: Patient JOHN HERNANDEZ MD Mar 12, 2025 08:57
[2025-03-12] MEDS: PIPERACILLIN-TAZOB 3.375GM 100 ML IV SCH (17:04)
[2025-03-13] VITALS (8 sets, daily range): BP systolic 124–141; BP diastolic 78–97; PULSE 72–102; RESP 16–20; TEMP 97.9–98.7; O2SAT 92–99
[2025-03-13] MEDS: IOHEXOL 300 MG/ML 100ML BOTTLE IJ ONE (13:16)
--- NOTE | 2025-03-13 14:02 | DVH ---
Indication: RLQ Pain/Tenderness S/P Lap Appy Technique: CT axial images of the abdomen and pelvis are obtained with intravenous contrast. Coronal and sagittal reformats were obtained. Radiation Dose Information: CTDI volume is 11.2 mGy. Dose-length product is 638 mGy*cm Comparison: CT CT AB PEL WITH IV CON ONLY on DOS: 03/10/25 FINDINGS: Bibasilar atelectasis/consolidation tiny bilateral pleural effusions. Adrenal glands, spleen, pancreas unremarkable. Cholecystectomy. No enhancing hepatic lesion. Kidneys demonstrate no hydronephrosis. Stomach is partially distended. Small bowel loops moderately distended. Moderate volume stool in the colon. Status post appendectomy. There is bowel wall edema/ thickening of the cecum. There is exten sive Right lower quadrant inflammatory stranding, edema which extends to surround the bladder and int o the pelvis. Fluid within the bilateral paracolic gutters. Presacral edema. No rim enhancing/locula nery collection. Hyperemia of the uterus, adnexa. Right lower quadrant mesenteric lymph nodes up to 1 cm. Abdominal aorta normal in caliber. Bladder partially distended. Small amount of air in the nondepende nt bladder. No inguinal lymphadenopathy. No aggressive osseous process. [id number] thoracolumbar degenerative disc disease. Soft tissue edema / anasarca. IMPRESSION: Status post appendectomy. There is extensive bowel wall edema and thickening of the cecum region whi ch could be secondary to colitis/ inflammatory etiologies. Extensive edema and stranding in the right lower quadrant which extends into the pelvis and bilateral paracolic gutters. This likely represent sequela of infectious / inflammatory etiology. Components o f this were also present on previous imaging however appear more pronounced on the current examinatio n. No definitive abscess identified. Recommend follow-up to ensure resolution and exclude developing abscess. Small amount of air within the nondependent bladder which could be iatrogenic, secondary to infection . Bibasilar atelectasis / consolidation and tiny bilateral pleural effusions. Other findings as described.
[2025-03-14] VITALS (7 sets, daily range): BP systolic 123–154; BP diastolic 83–99; PULSE 65–94; RESP 16–19; TEMP 97.3–98.3; O2SAT 94–98
--- NOTE | 2025-03-14 14:22 | DVHPN2 ---
Reviewed: Care Plan, H&P, Labs, Medications, Previous Orders, Radiology Changes from previous H/P or p: No Changes General: Per HPI Eyes: No Pain, No Vision change, No Conjunctivae inflammation, No Eyelid inflammation, No Other, No Redness ENT: No Ear pain, No Ear discharge, No Nose pain, No Nose discharge, No Nose congestion, No Mouth pain, No Mouth swelling, No Throat pain, No Throat swelling, No Other Cardiovascular: No Chest Pain, No Palpitations, No Orthopnea, No Paroxysmal Noc. Dyspnea, No Edema, No Lt Headedness, No Other Respiratory: No Cough, No Dry, No Shortness of breath, No SOB with excertion, No Wheezing, No Hemoptysis, No Pleuritic Pain, No Sputum, No Other Gastrointestinal: No Nausea, No Vomiting; Abdominal Pain; No Diarrhea, No Constipation, No Melena, No Hematochezia, No Other Genitourinary: No Dysuria, No Frequency, No Incontinence, No Hematuria, No Retention, No Other Musculoskeletal: No other, No neck pain, No shoulder pain, No arm pain, No back pain, No hand pain, No leg pain, No foot pain Skin: No Rash, No Lesions, No Jaundice, No Bruising, No Other Objective Vitals Vital Signs Date Time Temp Pulse Resp B/P (MAP) Pulse Ox O2 Delivery O2 Flow Rate FiO2 03/14/25 12:39 98.3 94 19 139/99 (112) 96 98.3 03/14/25 08:00 Room Air* 0 21 Intake/Output Intake and Output 03/14/25 07:00 Intake Total 1875 ml Balance 1875 ml Intake Oral 1725 ml IV Total 150 ml # Voids 7 Medications Current Medications Medications Dose Ordered Sig/Baljit Route Start Time Stop Time Status Last Admin Dose Admin Acetaminophen/ Hydrocodone Bitart 1 tab Q4HP PRN PO 03/10/25 04:30 03/14/25 11:20 1 TAB Ondansetron HCl 4 mg Q4HP PRN IV 03/10/25 04:30 Docusate Sodium 100 mg BIDPRN PRN PO 03/10/25 04:30 03/13/25 18:43 100 MG Acetaminophen 650 mg Q6HP PRN PO 03/10/25 04:30 03/10/25 08:12 650 MG Nitroglycerin 0.4 mg Q5MINP PRN SL 03/10/25 04:30 Morphine Sulfate 2 mg Q30M PRN IV 03/10/25 04:30 Hydromorphone HCl 0.5 mg Q4HPRN PRN IV 03/11/25 09:45 03/13/25 08:09 0.5 MG Piperacillin Sod/ Tazobactam Sod 100 ml @ 25 mls/hr Q8H IV 03/12/25 17:00 03/14/25 08:44 25 MLS/HR Laboratory Results Laboratory Tests 03/12/25 04:39 Urinalysis Test 03/10/25 01:44 Urine Color Yellow (Yellow) Urine Clarity Clear (Clear) Urine pH 5.5 (5.0-9.0) Urine Specific [place] 1.023 (1.001-1.035) Urine Protein Trace (Negative) H Urine Ketones Negative (Negative) Urine Blood 1+ /uL (Negative) H Urine Nitrite Negative (Negative) Urine Bilirubin Negative (Negative) Urine Urobilinogen Normal mg/dL (Negative) Urine Leukocyte Esterase Trace /uL (Negative) Urine RBC 1 /hpf (0 - 4) Urine Microscopic WBC 4 /HPF (0-5) Urine Squamous Epithelial Cells None seen /hpf (<5) Urine Bacteria None seen /hpf (None Seen) Urine Mucus Few (None Seen) Urine Glucose Normal mg/dL (Normal) Urine Test Negative (Negative) Microbiology Microbiology Date/Time Source Procedure Growth Status 03/12/25 18:50 Nose MRSA Screen - Final Complete Assessment/Plan Assessment/Plan The patient is a 39-year-old female 1 para 1 AB 0 who denies past medical history presented to [facility] ED with complaint of abdominal pain. Patient reports symptoms progressively get worse with epigastric abdominal pain, radiating to her right lower quadrant, rating 9/10 numeric scale, getting worse that prompted this visit. Acute appendicitis Acute abdominal pain Leukocytosis, unspecified obesity Plan discussed with: Patient Date of Service: Mar 11, 2025 Billing Provider: TANIA ANGULO DO Common Visit Codes: [id number] INP/OBS CARE(HIGH) TANIA ANGULO DO Mar 14, 2025 14:21
--- NOTE | 2025-03-14 14:23 | DVHPN2 ---
Reviewed: Care Plan, H&P, Labs, Medications, Previous Orders, Radiology Changes from previous H/P or p: No Changes General: Per HPI Eyes: No Pain, No Vision change, No Conjunctivae inflammation, No Eyelid inflammation, No Other, No Redness ENT: No Ear pain, No Ear discharge, No Nose pain, No Nose discharge, No Nose congestion, No Mouth pain, No Mouth swelling, No Throat pain, No Throat swelling, No Other Cardiovascular: No Chest Pain, No Palpitations, No Orthopnea, No Paroxysmal Noc. Dyspnea, No Edema, No Lt Headedness, No Other Respiratory: No Cough, No Dry, No Shortness of breath, No SOB with excertion, No Wheezing, No Hemoptysis, No Pleuritic Pain, No Sputum, No Other Gastrointestinal: No Nausea, No Vomiting; Abdominal Pain; No Diarrhea, No Constipation, No Melena, No Hematochezia, No Other Genitourinary: No Dysuria, No Frequency, No Incontinence, No Hematuria, No Retention, No Other Musculoskeletal: No other, No neck pain, No shoulder pain, No arm pain, No back pain, No hand pain, No leg pain, No foot pain Skin: No Rash, No Lesions, No Jaundice, No Bruising, No Other Objective Vitals Vital Signs Date Time Temp Pulse Resp B/P (MAP) Pulse Ox O2 Delivery O2 Flow Rate FiO2 03/14/25 12:39 98.3 94 19 139/99 (112) 96 98.3 03/14/25 08:00 Room Air* 0 21 Intake/Output Intake and Output 03/14/25 07:00 Intake Total 1875 ml Balance 1875 ml Intake Oral 1725 ml IV Total 150 ml # Voids 7 Medications Current Medications Medications Dose Ordered Sig/Baljit Route Start Time Stop Time Status Last Admin Dose Admin Acetaminophen/ Hydrocodone Bitart 1 tab Q4HP PRN PO 03/10/25 04:30 03/14/25 11:20 1 TAB Ondansetron HCl 4 mg Q4HP PRN IV 03/10/25 04:30 Docusate Sodium 100 mg BIDPRN PRN PO 03/10/25 04:30 03/13/25 18:43 100 MG Acetaminophen 650 mg Q6HP PRN PO 03/10/25 04:30 03/10/25 08:12 650 MG Nitroglycerin 0.4 mg Q5MINP PRN SL 03/10/25 04:30 Morphine Sulfate 2 mg Q30M PRN IV 03/10/25 04:30 Hydromorphone HCl 0.5 mg Q4HPRN PRN IV 03/11/25 09:45 03/13/25 08:09 0.5 MG Piperacillin Sod/ Tazobactam Sod 100 ml @ 25 mls/hr Q8H IV 03/12/25 17:00 03/14/25 08:44 25 MLS/HR Laboratory Results Laboratory Tests 03/12/25 04:39 Urinalysis Test 03/10/25 01:44 Urine Color Yellow (Yellow) Urine Clarity Clear (Clear) Urine pH 5.5 (5.0-9.0) Urine Specific [place] 1.023 (1.001-1.035) Urine Protein Trace (Negative) H Urine Ketones Negative (Negative) Urine Blood 1+ /uL (Negative) H Urine Nitrite Negative (Negative) Urine Bilirubin Negative (Negative) Urine Urobilinogen Normal mg/dL (Negative) Urine Leukocyte Esterase Trace /uL (Negative) Urine RBC 1 /hpf (0 - 4) Urine Microscopic WBC 4 /HPF (0-5) Urine Squamous Epithelial Cells None seen /hpf (<5) Urine Bacteria None seen /hpf (None Seen) Urine Mucus Few (None Seen) Urine Glucose Normal mg/dL (Normal) Urine Test Negative (Negative) Microbiology Microbiology Date/Time Source Procedure Growth Status 03/12/25 18:50 Nose MRSA Screen - Final Complete Assessment/Plan Assessment/Plan The patient is a 39-year-old female 1 para 1 AB 0 who denies past medical history presented to [facility] ED with complaint of abdominal pain. Patient reports symptoms progressively get worse with epigastric abdominal pain, radiating to her right lower quadrant, rating 9/10 numeric scale, getting worse that prompted this visit. Acute appendicitis Acute abdominal pain Leukocytosis, unspecified obesity Plan discussed with: Patient Date of Service: Mar 12, 2025 Billing Provider: TANIA ANGULO DO Common Visit Codes: [id number] INP/OBS CARE(HIGH) TANIA ANGULO DO Mar 14, 2025 14:23
--- NOTE | 2025-03-14 14:24 | DVHPN2 ---
Reviewed: Care Plan, H&P, Labs, Medications, Previous Orders, Radiology Changes from previous H/P or p: No Changes General: Per HPI Eyes: No Pain, No Vision change, No Conjunctivae inflammation, No Eyelid inflammation, No Other, No Redness ENT: No Ear pain, No Ear discharge, No Nose pain, No Nose discharge, No Nose congestion, No Mouth pain, No Mouth swelling, No Throat pain, No Throat swelling, No Other Cardiovascular: No Chest Pain, No Palpitations, No Orthopnea, No Paroxysmal Noc. Dyspnea, No Edema, No Lt Headedness, No Other Respiratory: No Cough, No Dry, No Shortness of breath, No SOB with excertion, No Wheezing, No Hemoptysis, No Pleuritic Pain, No Sputum, No Other Gastrointestinal: No Nausea, No Vomiting; Abdominal Pain; No Diarrhea, No Constipation, No Melena, No Hematochezia, No Other Genitourinary: No Dysuria, No Frequency, No Incontinence, No Hematuria, No Retention, No Other Musculoskeletal: No other, No neck pain, No shoulder pain, No arm pain, No back pain, No hand pain, No leg pain, No foot pain Skin: No Rash, No Lesions, No Jaundice, No Bruising, No Other Objective Vitals Vital Signs Date Time Temp Pulse Resp B/P (MAP) Pulse Ox O2 Delivery O2 Flow Rate FiO2 03/14/25 12:39 98.3 94 19 139/99 (112) 96 98.3 03/14/25 08:00 Room Air* 0 21 Intake/Output Intake and Output 03/14/25 07:00 Intake Total 1875 ml Balance 1875 ml Intake Oral 1725 ml IV Total 150 ml # Voids 7 General Appearance: Alert, Oriented X3, Cooperative HEENT: Atraumatic Cardiovascular: Regular rate, Normal S1, Normal S2 Abdomen: Normal bowel sounds, Soft Medications Current Medications Medications Dose Ordered Sig/Baljit Route Start Time Stop Time Status Last Admin Dose Admin Acetaminophen/ Hydrocodone Bitart 1 tab Q4HP PRN PO 03/10/25 04:30 03/14/25 11:20 1 TAB Ondansetron HCl 4 mg Q4HP PRN IV 03/10/25 04:30 Docusate Sodium 100 mg BIDPRN PRN PO 03/10/25 04:30 03/13/25 18:43 100 MG Acetaminophen 650 mg Q6HP PRN PO 03/10/25 04:30 03/10/25 08:12 650 MG Nitroglycerin 0.4 mg Q5MINP PRN SL 03/10/25 04:30 Morphine Sulfate 2 mg Q30M PRN IV 03/10/25 04:30 Hydromorphone HCl 0.5 mg Q4HPRN PRN IV 03/11/25 09:45 03/13/25 08:09 0.5 MG Piperacillin Sod/ Tazobactam Sod 100 ml @ 25 mls/hr Q8H IV 03/12/25 17:00 03/14/25 08:44 25 MLS/HR Laboratory Results Laboratory Tests 03/12/25 04:39 Urinalysis Test 03/10/25 01:44 Urine Color Yellow (Yellow) Urine Clarity Clear (Clear) Urine pH 5.5 (5.0-9.0) Urine Specific [place] 1.023 (1.001-1.035) Urine Protein Trace (Negative) H Urine Ketones Negative (Negative) Urine Blood 1+ /uL (Negative) H Urine Nitrite Negative (Negative) Urine Bilirubin Negative (Negative) Urine Urobilinogen Normal mg/dL (Negative) Urine Leukocyte Esterase Trace /uL (Negative) Urine RBC 1 /hpf (0 - 4) Urine Microscopic WBC 4 /HPF (0-5) Urine Squamous Epithelial Cells None seen /hpf (<5) Urine Bacteria None seen /hpf (None Seen) Urine Mucus Few (None Seen) Urine Glucose Normal mg/dL (Normal) Urine Test Negative (Negative) Microbiology Microbiology Date/Time Source Procedure Growth Status 03/12/25 18:50 Nose MRSA Screen - Final Complete Assessment/Plan Assessment/Plan The patient is a 39-year-old female 1 para 1 AB 0 who denies past medical history presented to [facility] ED with complaint of abdominal pain. Patient reports symptoms progressively get worse with epigastric abdominal pain, radiating to her right lower quadrant, rating 9/10 numeric scale, getting worse that prompted this visit. Acute appendicitis, s/p cholecystectomy constipation Acute abdominal pain Leukocytosis, unspecified obesity Plan discussed with: Patient Date of Service: Mar 14, 2025 Billing Provider: TANIA ANGULO DO Common Visit Codes: [id number] INP/OBS CARE(HIGH) TANIA ANGULO DO Mar 14, 2025 14:24
--- NOTE | 2025-03-14 14:24 | DVHPN2 ---
Reviewed: Care Plan, H&P, Labs, Medications, Previous Orders, Radiology Changes from previous H/P or p: No Changes General: Per HPI Eyes: No Pain, No Vision change, No Conjunctivae inflammation, No Eyelid inflammation, No Other, No Redness ENT: No Ear pain, No Ear discharge, No Nose pain, No Nose discharge, No Nose congestion, No Mouth pain, No Mouth swelling, No Throat pain, No Throat swelling, No Other Cardiovascular: No Chest Pain, No Palpitations, No Orthopnea, No Paroxysmal Noc. Dyspnea, No Edema, No Lt Headedness, No Other Respiratory: No Cough, No Dry, No Shortness of breath, No SOB with excertion, No Wheezing, No Hemoptysis, No Pleuritic Pain, No Sputum, No Other Gastrointestinal: No Nausea, No Vomiting; Abdominal Pain; No Diarrhea, No Constipation, No Melena, No Hematochezia, No Other Genitourinary: No Dysuria, No Frequency, No Incontinence, No Hematuria, No Retention, No Other Musculoskeletal: No other, No neck pain, No shoulder pain, No arm pain, No back pain, No hand pain, No leg pain, No foot pain Skin: No Rash, No Lesions, No Jaundice, No Bruising, No Other Objective Vitals Vital Signs Date Time Temp Pulse Resp B/P (MAP) Pulse Ox O2 Delivery O2 Flow Rate FiO2 03/14/25 12:39 98.3 94 19 139/99 (112) 96 98.3 03/14/25 08:00 Room Air* 0 21 Intake/Output Intake and Output 03/14/25 07:00 Intake Total 1875 ml Balance 1875 ml Intake Oral 1725 ml IV Total 150 ml # Voids 7 General Appearance: Alert, Oriented X3, Cooperative HEENT: Atraumatic Cardiovascular: Regular rate, Normal S1, Normal S2 Abdomen: Normal bowel sounds, Soft Medications Current Medications Medications Dose Ordered Sig/Baljit Route Start Time Stop Time Status Last Admin Dose Admin Acetaminophen/ Hydrocodone Bitart 1 tab Q4HP PRN PO 03/10/25 04:30 03/14/25 11:20 1 TAB Ondansetron HCl 4 mg Q4HP PRN IV 03/10/25 04:30 Docusate Sodium 100 mg BIDPRN PRN PO 03/10/25 04:30 03/13/25 18:43 100 MG Acetaminophen 650 mg Q6HP PRN PO 03/10/25 04:30 03/10/25 08:12 650 MG Nitroglycerin 0.4 mg Q5MINP PRN SL 03/10/25 04:30 Morphine Sulfate 2 mg Q30M PRN IV 03/10/25 04:30 Hydromorphone HCl 0.5 mg Q4HPRN PRN IV 03/11/25 09:45 03/13/25 08:09 0.5 MG Piperacillin Sod/ Tazobactam Sod 100 ml @ 25 mls/hr Q8H IV 03/12/25 17:00 03/14/25 08:44 25 MLS/HR Laboratory Results Laboratory Tests 03/12/25 04:39 Urinalysis Test 03/10/25 01:44 Urine Color Yellow (Yellow) Urine Clarity Clear (Clear) Urine pH 5.5 (5.0-9.0) Urine Specific [place] 1.023 (1.001-1.035) Urine Protein Trace (Negative) H Urine Ketones Negative (Negative) Urine Blood 1+ /uL (Negative) H Urine Nitrite Negative (Negative) Urine Bilirubin Negative (Negative) Urine Urobilinogen Normal mg/dL (Negative) Urine Leukocyte Esterase Trace /uL (Negative) Urine RBC 1 /hpf (0 - 4) Urine Microscopic WBC 4 /HPF (0-5) Urine Squamous Epithelial Cells None seen /hpf (<5) Urine Bacteria None seen /hpf (None Seen) Urine Mucus Few (None Seen) Urine Glucose Normal mg/dL (Normal) Urine Test Negative (Negative) Microbiology Microbiology Date/Time Source Procedure Growth Status 03/12/25 18:50 Nose MRSA Screen - Final Complete Labs and/or images reviewed: Labs reviewed by me Assessment/Plan Assessment/Plan The patient is a 39-year-old female 1 para 1 AB 0 who denies past medical history presented to [facility] ED with complaint of abdominal pain. Patient reports symptoms progressively get worse with epigastric abdominal pain, radiating to her right lower quadrant, rating 9/10 numeric scale, getting worse that prompted this visit. Acute appendicitis s/p cholecystectomy Acute abdominal pain Leukocytosis, unspecified obesity Plan discussed with: Patient Date of Service: Mar 13, 2025 Billing Provider: TANIA ANGULO DO Common Visit Codes: [id number] INP/OBS CARE(HIGH) TANIA ANGULO DO Mar 14, 2025 14:24
[2025-03-15 05:00] VITALS: BP 121/63; PULSE 71; RESP 17; TEMP 97.7; O2SAT 95
[2025-03-15 08:00] VITALS: PULSE 58; PULSE 74; RESP 15
[2025-03-15 09:01] VITALS: BP 129/76; PULSE 74; RESP 15; TEMP 97.9; O2SAT 98
[2025-03-15] MEDS ORDERED: CEPH250C PO (12:31)
[2025-03-15] MEDS ORDERED: DOCU-265 PO (12:31)
--- NOTE | 2025-03-15 12:36 | DVHDS2 ---
Discharge Summary Date of Admission Mar 10, 2025 at 04:17 Date of Discharge: Mar 15, 2025 Labs/Diagnostic Data: Laboratory Results Test 03/12/25 04:39 03/11/25 04:32 03/10/25 01:44 03/10/25 01:19 White Blood Count 11.8 10^3/uL (4.4-10.8) Red Blood Count 3.94 10^6/uL (4.0-5.20) Hemoglobin 13.3 g/dL (12.2-16.2) Hematocrit 38.7 % (36.0-46.0) Mean Corpuscular Volume 98.3 fL (80.0-100.0) Mean Corpuscular Hemoglobin 33.7 pg (28.0-32.0) Mean Corpuscular Hemoglobin Concent 34.3 g/dL (32.0-36.0) Red Cell Distribution Width 12.6 % (11.8-14.3) Platelet Count 283 10^3/uL (140-450) Mean Platelet Volume 8.7 fL (6.9-10.8) Neutrophils (%) (Auto) 77.5 % (37.0-80.0) Lymphocytes (%) (Auto) 17.6 % (10.0-50.0) Monocytes (%) (Auto) 3.9 % (0.0-12.0) Eosinophils (%) (Auto) 0.7 % (0.0-7.0) Basophils (%) (Auto) 0.3 % (0.0-2.0) Neutrophils # (Auto) 9.1 10 ^3/uL (1.6-8.6) Lymphocytes # (Auto) 2.1 10 ^3/uL (0.4-5.4) Monocytes # (Auto) 0.5 10 ^3/uL (0-1.3) Eosinophils # (Auto) 0.1 10 ^3/uL (0-0.8) Basophils # (Auto) 0 10 ^3/uL (0-0.2) Nucleated Red Blood Cells 0.0 % Sodium Level 139 mmol/L (136-145) Potassium Level 3.3 mmol/L (3.5-5.1) Chloride Level 102 mmol/L (98-107) Carbon Dioxide Level 26 mmol/L (20-31) Anion Gap 11 (5-15) Blood Urea Nitrogen 9 mg/dL (9-23) Creatinine 0.55 mg/dL (0.550-1.02) Glomerular Filtration Rate Calc 120 mL/min (>90) BUN/Creatinine Ratio 16.4 (10.0-20.0) Serum Glucose 96 mg/dL (74-106) Calcium Level 9.0 mg/dL (8.7-10.4) Total Bilirubin 0.7 mg/dL (0.2-1.0) Aspartate Amino Transferase (AST) 25 U/L (13-40) Alanine Aminotransferase (ALT) 33 U/L (7-40) Alkaline Phosphatase 88 U/L (46-116) Total Protein 6.6 g/dL (5.7-8.2) Albumin 4.2 g/dL (3.2-4.8) Urine Color Yellow (Yellow) Urine Clarity Clear (Clear) Urine pH 5.5 (5.0-9.0) Urine Specific [place] 1.023 (1.001-1.035) Urine Protein Trace (Negative) Urine Ketones Negative (Negative) Urine Blood 1+ /uL (Negative) Urine Nitrite Negative (Negative) Urine Bilirubin Negative (Negative) Urine Urobilinogen Normal mg/dL (Negative) Urine Leukocyte Esterase Trace /uL (Negative) Urine RBC 1 /hpf (0 - 4) Urine Microscopic WBC 4 /HPF (0-5) Urine Squamous Epithelial Cells None seen /hpf (<5) Urine Bacteria None seen /hpf (None Seen) Urine Mucus Few (None Seen) Urine Glucose Normal mg/dL (Normal) Urine Test Negative (Negative) Lipase 31 U/L (12-53) Other Laboratory Tests 03/12/25 04:39 Brief Hx & Hospital Course: The patient is a 39-year-old female 1 para 1 AB 0 who denies past medical history presented to [facility] ED with complaint of abdominal pain. Patient reports symptoms progressively get worse with epigastric abdominal pain, radiating to her right lower quadrant, rating 9/10 numeric scale, getting worse that prompted this visit. Acute appendicitis s/p appendectomy constipation Acute abdominal pain Leukocytosis, unspecified obesity pt can be discharged today after having a bowel movement Condition at Discharge: Fair Final Diagnosis/Problems List Same as above Discharge Disposition: Home Discharge Instruct/Medications Diet: Cardiac 2g Na,low cholest Activity: No Restrictions, As Tolerated Scheduled Cephalexin (Keflex Capsule), 2 CAP PO BID Ibuprofen (Ibuprofen), 1 TAB PO TID Scheduled PRN Docusate Sodium (Docusate Sodium), 100 MG PO BIDPRN PRN Discharge Statement: "Patient was advised to return to the ER or call 911 if any headaches, dizziness, shortness of breath, chest pain, abdominal pain, bleeding, fevers, or worsening of medical condition. Patient was counseled about treatment plan, medications, possible side effects, patientverbalized understanding. All questions were answered to the best of my ability. This discharge took greater then 30 minutes in planning, reviewing documentation, counseling the patient, and discussing with other team members." ASSESSMENT ASSESSMENT Assessment 1. Same Date of Service: Mar 15, 2025 Billing Provider: TANIA ANGULO DO Common Visit Codes: [id number] DISCH DAY >30min TANIA ANGULO DO Mar 15, 2025 12:36
[2025-03-15] MEDS: LACTULOSE 20Gm/30ML SOLN PO ONE (13:04)
[2025-03-15 14:08] LABS: Chloride 104 mmol/L (98-107); Sodium 143 mmol/L (136-145)
[2025-03-15 14:09] LABS: Anion Gap 10 (5-15); Calcium 9.4 mg/dL (8.7-10.4); Carbon Dioxide 29 mmol/L (20-31); Potassium 3.4 mmol/L (3.5-5.1)
[2025-03-15 14:14] LABS: BUN/Creatinine Ratio 14.8 (10.0-20.0); Blood Urea Nitrogen 9 mg/dL (9-23)
[2025-03-15 14:17] LABS: Glucose 111 mg/dL (74-106)
[2025-03-15 14:36] VITALS: BP 138/97; PULSE 64; RESP 19; TEMP 98; O2SAT 97
[2025-03-15] MEDS: POTASSIUM CHL 20 Meq TABLET PO ONE (15:38)
== END 2025-03-15 17:49 | disposition home or self-care (01) | DRG 548 ==
LOC: ER 00:24 → OVERFLOW 04:17 → TELE-WESTW 06:25 → TELE-CENTR 03-12 15:33 → TELE-WESTW 03-14 21:23
PROVIDERS: ADMIT Internal Medicine; ATTEND Internal Medicine
PROC: 0DTJ4ZZ Resection of Appendix, Percutaneous Endoscopic Approach (ICD-10-PCS; principal; 2025-03-10 10:03)
DX: O99.63 Diseases of the digestive system complicating the puerperium (principal); K35.32 Acute appendicitis with perforation, localized peritonitis, and gangrene, without abscess; K38.1 Appendicular concretions; O99.215 Obesity complicating the puerperium; K59.00 Constipation, unspecified; Z90.49 Acquired absence of other specified parts of digestive tract; Z91.010 Allergy to peanuts; Z79.899 Other long term (current) drug therapy
CPT/HCPCS: 36415; 74177; 80048; 80053; 81001; 81025; 83690; 85025; 87081; 96365; 96375; G0378; J0131; J0330; J1100; J2405; J2543; J2704